=== PATIENT | female | born 1980 | race Two or more races ===

== ENCOUNTER 2021-01-26 15:59 | Emergency (ER) | payer OTHER, MEDICAID, SELFPAY ==
--- NOTE | 2021-01-26 08:08 | ECG_ITS ---
Test Reason : CHEST PAIN Blood Pressure : / mmHG Vent. Rate : 073 BPM Atrial Rate : 073 BPM P-R Int : 176 ms QRS Dur : 086 ms QT Int : 388 ms P-R-T Axes : 029 000 006 degrees QTc Int : 427 ms Normal sinus rhythm Nonspecific T wave abnormality Borderline ECG When compared with ECG of 18-DEC-2018 23:29, No significant change was found Referred By: Pura Nugent Electronically Signed By:CATALINA ELLSWORTH
[2021-01-26 16:56] VITALS: BP 103/52; PULSE 76; RESP 20; TEMP 36.2; O2SAT 97; BMI 29.5
[2021-01-26 18:39] LABS: COVID-19 Test Negative (Negative)
--- NOTE | 2021-01-26 20:17 | ED.WEAKNESS ---
HPI - Weakness General Chief complaint: Weakness Stated complaint: body aches Time Seen by Provider: 01/26/21 20:17 Source: patient Mode of arrival: ambulatory History of Present Illness HPI Narrative: 41 y/o female with no medical history presents to the ER with generalized weakness, fatigue and not feeling well since she got her 2nd COVID vaccine on Friday. Her symptoms started Friday. She reports chest discomfort on the right side when she moves or touches her chest wall. She states sometimes she has a hard time taking a deep breath but she denies SOB or GUZMAN. No coughing, no fevers. She called her doctor today who advised her to come to the ER for further evaluation. MD Complaint: generalized weakness Onset (ago): day(s) (2) Duration: intermittent Location: generalized Migration: none Severity: mild Severity scale (1-10): 3 Relieving factors: rest Exacerbating factors: movement Context: new medication Associated symptoms: denies other symptoms Related Data Allergies Allergy/AdvReac Type Severity Reaction Status Date / Time No Known Allergies [NKA] Allergy Unverified 05/25/20 17:22 Review of Systems Review of Systems: Constitutional: No Fever, No Chills ENT/Mouth: No sore throat, No Rhinorrhea, No Swallowing Difficulty Cardiovascular: + Chest Pain, No SOB, No Orthopnea, No Edema Respiratory: No Cough, No Sputum, No Wheezing, No dyspnea Gastrointestinal: No Nausea, No Vomiting, No Diarrhea, No abdominal Pain Genitourinary: No Dysuria, No Urinary Frequency, No Hematuria Musculoskeletal: No joint pain, No Myalgias Skin: No Skin Lesions, No rash Neuro: + Weakness, No Numbness, No Dizziness, + Headache Psych: No Anxiety/Panic, No Depression Heme/Lymph: No Bruising, No Lymphadenopathy PMFSH Past Medical History Attestation statement: The following information was validated with the patient. Medical History Migraine Social History Social History Advance Directives: No Advance Directives Information Provided: No Physical Exam Vital Signs: Vital Signs: Last Vital Signs Temp 97.2 F 01/26/21 16:56 Pulse 76 01/26/21 16:56 Resp 20 01/26/21 16:56 BP 103/52 L 01/26/21 16:56 Pulse Ox 97 01/26/21 16:56 Body Mass Index 29.5 Appearance: Alert. Oriented X3. No acute distress. Eyes: Pupils equal, round and reactive to light. ENT: Pharynx normal. Neck: Normal inspection. Neck supple. CVS: Normal heart rate and rhythm. Pulses normal. Respiratory: No respiratory distress. Breath sounds normal. Right chest wall with mild reproducible tenderness between middle ribs. Abdomen: Soft and nontender. +BS x4 Skin: Skin warm and dry. Normal skin color. Normal skin turgor. No rashes. Extremities: No lower extremity edema. Neuro: Oriented X 3. No motor deficit. No sensory deficit. Course Course Course Narrative: 41 y/o female presenting with fatigue, generalized weakness and reproducible chest discomfort s/p Moderna COVID vaccine. COVID negative here. Her exam is reassuring. EKG normal. She wants to go home and says she feels 100% better. She denies chest pain or SOB at this time. She is stable for d/c with plan for outpatient f/u. Advised to come back to the ER if she develops chest pain, SOB, or GUZMAN. MDM - Weakness Medical Records Attestation: I reviewed the patient's medical records. Lab Data Labs: Lab Results 01/26/21 Range/Units 17:45 COVID-19 (MAHIN) Negative (Negative) COVID-19 Clin Com See Note ECG Data Attestation: I personally reviewed and interpreted this ECG as follows: ECG interpretation date: 01/26/21 ECG interpretation time: 20:53 Interpretation: normal sinus rhythm, HR 73 bpm, normal OH interval. No ST segment elevations or depressions. Critical Care Time Critical Care Time Critical Care Time: No Discharge Plan Discharge Clinical Impression: Vaccine reaction Qualifiers: Encounter type: initial encounter Qualified Code(s): T50.Z95A - Adverse effect of other vaccines and biological substances, initial encounter Patient Disposition: Home, Self-Care Instructions: Costochondritis (ED) Additional Instructions: Your EKG was normal. Your pain is most likely muscular. Recommend rest and using ice to the area. Take Motrin 600 mg every 6 hours as needed for pain. Follow up with your doctor next week. If you have worsening pain or any other concerning symptoms come back to the ER for further evaluation.
[2021-01-26 21:08] VITALS: BP 110/76; PULSE 74; RESP 16
== END 2021-01-26 21:09 | disposition home or self-care (01) ==
PROVIDERS: Emergency Provider Emergency Medicine
DX: M79.10 Myalgia, unspecified site (principal); R07.9 Chest pain, unspecified; Z20.822 Contact with and (suspected) exposure to COVID-19
CPT/HCPCS: 36415; 87635; 93005; 99283

== ENCOUNTER 2021-09-03 12:27 | Emergency (ER) | payer BC, MEDICAID, SELFPAY ==
[2021-09-03 14:26] VITALS: BP 111/72; PULSE 115; RESP 20; TEMP 36.3; O2SAT 98; BMI 35.4
--- NOTE | 2021-09-03 14:51 | ED.URI ---
HPI - URI/Sore Throat General Chief Complaint: Fever Stated Complaint: COVID Symptoms Time Seen by Provider: 09/03/21 14:50 Source: patient Mode of arrival: ambulatory Limitations: no limitations History of Present Illness MD elicited complaint: fever, cough, sore throat, rhinorrhea and other (body aches) Pertinent past history: other (vaccinated x 2) Onset (ago): day(s) (2) Severity: moderate Description of mucous: clear Able to tolerate fluids by mouth: Yes Exacerbating factors: swallowing Relieving factors: nothing Context: sick contacts ( has positive COVID test at home) Associated symptoms: fever, chills, myalgias, headache, rhinorrhea, sore throat and cough Treatments prior to arrival: none Related Data Allergies Allergy/AdvReac Type Severity Reaction Status Date / Time No Known Allergies [NKA] Allergy Unverified 05/25/20 17:22 Review of Systems Review of Systems: Constitutional : positive Fever, positive Chills, positive fatigue, positive Malaise ENT/Mouth : positive sore throat, positive runny nose Eyes: No Discharge Cardiovascular : No Chest Pain, No SOB Respiratory : No Cough, No Sputum Gastrointestinal : No Nausea, No Vomiting, No Diarrhea Genitourinary : No Dysuria, No Urinary Frequency Musculoskeletal : positive Myalgia Skin : No rash Neuro : No Headache PMFSH Past Medical History Medical History Migraine Social History Social History (Updated 09/03/21 @ 15:03 by Nancy Nuñez DO) Patient Tobacco Use Status: Never used Tobacco Advance Directives: No Advance Directives Information Provided: No Patient : No Physical Exam Vital Signs: Vital Signs: Last Vital Signs Temp 98.6 F 09/03/21 14:59 Pulse 100 09/03/21 14:59 Resp 18 09/03/21 14:59 BP 130/84 09/03/21 14:59 Pulse Ox 97 09/03/21 14:59 BMI result Body Mass Index 35.4 Appearance: Alert. Oriented X3. No acute distress. Eyes: Pupils equal, round and reactive to light. ENT: Pharynx mild generalized erythema Neck: Normal inspection. Neck supple. CVS: Normal heart rate and rhythm. Pulses normal. Respiratory: No respiratory distress. Breath sounds normal. Abdomen: Soft and non-tender. Skin: Skin warm and dry. Normal skin color. Normal skin turgor. Extremities: No lower extremity edema. No calf ttp Neuro: Oriented X 3. No motor deficit. No sensory deficit. MDM - URI/Sore Throat MDM Narrative Medical decision making narrative: 41 yo female vaccinated x 2 non-smoker no history of asthma 2 days of URI symptoms no hypoxia clear lungs - 97% on RA. positive for COVID at home with rapid test at this time rapid test done given symptoms and positive contact will treat as positive - no work for 10 days. pending test stable for DC Lab Data Labs: Lab Results 09/03/21 09/03/21 Range/Units 15:00 15:00 COVID-19 (MAHIN) Positive A (Negative) COVID-19 Clin Com See Note S. pyogenes GrpA JONI Negative (Negative) Discharge Plan Discharge Clinical Impression: COVID-19 Patient Disposition: Home, Self-Care Instructions: COVID-19 (Coronavirus Disease 2019) (ED) Additional Instructions: return to ED for any worsening symptoms or concerns monitor your breathing if you are so short of breath you cannot walk to the bathroom please come back wear a mask, quarantine, protect others Stand Alone Forms: Work/School Release
[2021-09-03 14:59] VITALS: BP 130/84; PULSE 100; RESP 18; TEMP 37; O2SAT 97
[2021-09-03 15:16] LABS: COVID-19 Test Positive (Negative); IDNOW Serial# 08D9AD1C; IDNOW Serial# 55D5AD1C; Strep A Nucleic Acid Negative (Negative)
[2021-09-03] MEDS: Acetaminophen 325 MG TABLET 650 MG PO (15:36)
== END 2021-09-03 15:48 | disposition home or self-care (01) ==
PROVIDERS: Emergency Provider Emergency Medicine; PCP Internal Medicine
DX: U07.1 COVID-19 (principal)
CPT/HCPCS: 36415; 87635; 87651; 99283; 99284

== ENCOUNTER 2021-09-08 13:09 | Outpatient (REF) | payer BC, MEDICAID, SELFPAY ==
[2021-09-08 15:00] LABS: Binax Internal Control QC Valid; Binax Lot number: 9864; Binax Now Covid-19 Ag Negative (Negative)
== END 2021-09-08 13:10 | disposition home or self-care (01) ==
LOC: HO.LAB 13:09
PROVIDERS: Visit Provider Internal Medicine
DX: Z20.822 Contact with and (suspected) exposure to COVID-19 (principal)
CPT/HCPCS: 36415; C9803

== ENCOUNTER 2021-11-28 10:01 | Emergency (ER) | payer BC, MEDICAID, SELFPAY ==
[2021-11-28 10:09] VITALS: BP 122/63; PULSE 75; RESP 18; TEMP 36.9; O2SAT 98; BMI 32.8
--- NOTE | 2021-11-28 10:14 | ED_ITS ---
HPI - General Adult General Chief complaint: General Medical Stated complaint: body aches/heaviness/fatigue Time Seen by Provider: 11/28/21 10:14 Source: patient Mode of arrival: ambulatory Limitations: no limitations History of Present Illness HPI narrative: 41yo female w/ history of hypothyroidism, migraines here with complaints of generalized body aches (joint pain & muscle aches), malaise x 3 days. No fevers, chills, diff breathing, cough, chest pain, abdominal pain, vomiting, diarrhea. Patient has received COVID vaccine x3. No sick contact or recent travel. She last had her thyroid checked in October of 2021. She is unsure why her numbers were. She has been on levothyroxine for several years Related Data Allergies Allergy/AdvReac Type Severity Reaction Status Date / Time No Known Allergies [NKA] Allergy Unverified 05/25/20 17:22 Review of Systems Review of Systems: Yes all other systems are reviewed and are negative Constitutional: Constitutional: Reports no additional constitutional complaints, Reports body ache(s), Denies chills, Denies fever(s), Denies headache(s), Reports malaise and Denies weakness Eyes: Eyes: Reports no additional eye complaints and Denies change in vision ENT: Reports system reviewed and no additional complaints, except as documented, Denies dizziness, Denies headache(s), Denies nasal congestion, Denies nasal discharge and Denies neck pain Cardiovascular: Cardiovascular: Reports no additional cardiovascular complaints, Denies chest pain, Denies leg edema and Denies dyspnea Respiratory: Respiratory: Reports no additional respiratory complaints, Denies cough and Denies dyspnea Gastrointestinal: Gastrointestinal: Reports no additional gastrointestinal complaints, Denies abdominal pain, Denies diarrhea, Denies nausea and Denies vomiting Genitourinary: Genitourinary: Reports no additional female genitourinary complaints and Denies urinary incontinence Musculoskeletal: Musculoskeletal: Reports no additional musculoskeletal complaints, Denies back pain, Denies arthralgias, Denies joint swelling, Denies neck pain, Denies numbness and Denies tingling Integumentary/Breasts: Skin/Breast: Reports system reviewed and no additional complaints, except as docu and Denies rash Neurologic: Reports system reviewed and no additional complaints, except as documented, Denies dizziness, Denies headache(s), Denies numbness, Denies tingling and Denies weakness [facility] Past Medical History Attestation statement: The following information was validated with the patient. Source: old records reviewed and nursing notes reviewed Medical History Migraine Social History Social History Patient Tobacco Use Status: Never used Tobacco Advance Directives: No Patient : No Physical Exam ED Vital Signs: Vital Signs - 24 hr 11/28/21 10:09 Temperature 98.5 F Pulse Rate 75 Respiratory Rate 18 Blood Pressure 122/63 Pulse Oximetry 98 BMI result Body Mass Index 32.8 Const General: cooperative, healthy appearing, comfortable and no acute distress Orientation/consciousness: patient oriented x3 Limitations: no limitations HENMT Head: Yes normal to inspection Ears: hearing grossly normal bilaterally and TM's normal bilaterally General nose exam: Normal external nose present Face and sinus: Yes normal facial exam Mouth: Normal oral and palatal mucosa present Teeth and gingiva: dentition normal Throat: Yes posterior oropharynx normal, Yes tonsils normal and Yes uvula midline Eyes General: appearance normal, both eyes and all related structures Pupils: Equal, round and reactive pupils present Neck Neck: Yes normal visual inspection, Yes full ROM, Yes no lymphadenopathy and Yes no meningeal signs Chest Chest palpation & inspection: normal inspection of the chest Resp Effort & Inspection: normal respiratory effort Auscultation: clear to auscultation bilaterally Cardio Rate: regular rate Rhythm: regular rhythm Peripheral pulses: Peripheral pulses 2+ throughout GI Inspection: Yes normal to inspection Palpation (GI): Soft to palpation and nontender General: Yes no CVA tenderness Back/Spine/Pelvis Back: no CVA tenderness Thoracic/Lumbar Spine: thoracic and lumbar spine normal to inspection Skin General skin exam: no rashes or lesions noted Neuro General: patient oriented x3, moves all extremities and no meningeal signs Cranial nerves: Yes CN's II-XII intact bilaterally, Yes Equal, round and reactive pupils present, Yes Bilaterally intact EOM present, Yes Nystagmus not present, Yes Normal facial strength present and Yes Midline tongue present Cognition (Neuro): normal cognition Gait exam (Neuro): Normal gait present Motor exam (neuro): 5/5 motor strength present throughout Sensory Exam: Normal double simultaneous stimulation for sensation Extrem General: Yes normal to inspection, Yes no pedal edema and Yes no calf tenderness Course Course Course Narrative: 41 yo female here with body aches and malaise. Normal exam. VSS. Will check covid, flu screen. 1100-Covid and flu screen are negative. Likely viral syndrome. Recommend follow with PCP. Reviewed worrisome signs and symptoms of when to return to the emergency department. Comfortable discharge home. Medical Decision Making Medical Records Medical records reviewed: Yes I reviewed the patient's medical records. Lab Data Lab results reviewed: Yes I reviewed the patient's lab results. Labs: Lab Results 11/28/21 11/28/21 Range/Units 10:26 10:26 COVID-19 (MAHIN) Negative (Negative) COVID-19 Clin Com See Note Influenza Type A (JONI) Negative (Negative) Influenza Type B (JONI) Negative (Negative) Influenza A & B Note See Note Discharge Plan Discharge Clinical Impression: Acute viral syndrome Patient Disposition: Home, Self-Care Instructions: Viral Syndrome (ED) Additional Instructions: Covid screen and flu screen are negative Increase fluids, rest Motrin or tylenol for pain or fever as needed Follow-up with your PCP to have your thyroid level checked Referrals: Physician,Unknown J [Primary Care Provider] - 1 week Stand Alone Forms: Work/School Release
[2021-11-28 10:55] LABS: COVID-19 Test Negative (Negative); IDNOW Serial# 16C4AD1C
[2021-11-28 11:18] LABS: IDNOW Serial# 08D9AD1C; Influenza A Negative (Negative); Influenza B2 Negative (Negative)
== END 2021-11-28 11:32 | disposition home or self-care (01) ==
PROVIDERS: Nurse Practitioner Family; Emergency Provider Emergency Medicine
DX: B34.9 Viral infection, unspecified (principal); M79.10 Myalgia, unspecified site; Z20.822 Contact with and (suspected) exposure to COVID-19; Z79.899 Other long term (current) drug therapy
CPT/HCPCS: 87502; 87635; 99283

== ENCOUNTER 2021-12-15 16:36 | Emergency (ER) | payer MEDICAID, SELFPAY ==
[2021-12-15 16:56] VITALS: BP 114/84; PULSE 93; RESP 19; TEMP 36.6; O2SAT 98; BMI 32.9
--- NOTE | 2021-12-15 18:30 | ED.ABDPAIN ---
HPI - Abdominal Pain General Chief Complaint: Abdominal Pain Stated Complaint: abd pain,diarrhea Time Seen by Provider: 12/15/21 18:29 Source: patient Mode of arrival: ambulatory Limitations: no limitations History of Present Illness HPI narrative: Patient been having loose bowels diarrhea for last 3 days 4- 5 times a day , darkish/blackish in color called the PCPadvised to go to the hospital patient took Pepto-Bismol earlier no nausea no vomiting no dizziness no shortness of breath no history of any ulcer no significant abdominal pain Related Data Allergies Allergy/AdvReac Type Severity Reaction Status Date / Time No Known Allergies [NKA] Allergy Unverified 05/25/20 17:22 Review of Systems Review of Systems Yes all other systems are reviewed and are negative [facility] Past Medical History Medical History Hypothyroid Migraine Social History Social History Patient Tobacco Use Status: Never used Tobacco Use of substances other than those prescribed or required for medical reasons: No Advance Directives: No Advance Directives Information Provided: No Patient : No Physical Exam ED Vital Signs: Vital Signs - 24 hr 12/15/21 16:56 12/15/21 18:47 Temperature 98 F Pulse Rate 93 82 Respiratory Rate 19 18 Blood Pressure 114/84 131/73 Pulse Oximetry 98 99 BMI result Body Mass Index 32.9 Appearance: Alert. Oriented X3. No acute distress. Eyes: No pallor or icterus ENT: Pharynx normal. Oral Mucosa moist Neck: Normal inspection. Neck supple. CVS: Normal heart rate and rhythm. Pulses normal. Respiratory: No respiratory distress. Abdomen: Soft and nontender. Bowel sounds are present, no mass palpable, no CVA tenderness Rectal: Brown stool guaiac negative Skin: Skin warm and dry. Normal skin color. Normal skin turgor. Extremities: No lower extremity edema. No calf tenderness Neuro: Oriented X 3. MDM - Abdominal Pain MDM Narrative Medical decision making narrative: Patient with mild gastroenteritis guaiac negative will discharge patient home Lab Data Attestation: I reviewed the patient's lab results. Labs: Lab Results 12/15/21 Range/Units 18:43 Stool Occult Blood NEGATIVE (NEGATIVE) Discharge Plan Discharge Clinical Impression: Diarrhea Patient Disposition: Home, Self-Care Instructions: Acute Diarrhea (ED) Additional Instructions: Drink plenty of fluids Your black stool is not from bleeding
[2021-12-15] MEDS: Dicyclomine HCl 10 MG CAPSULE 20 MG PO (18:45)
[2021-12-15 18:47] VITALS: BP 131/73; PULSE 82; RESP 18; O2SAT 99
[2021-12-15 18:51] LABS: OBS Int Ctl Valid YES; OBS1 NEGATIVE (NEGATIVE)
== END 2021-12-15 19:07 | disposition home or self-care (01) ==
LOC: HO.ED 18:42
PROVIDERS: Emergency Provider Internal Medicine; PCP Internal Medicine
DX: R19.7 Diarrhea, unspecified (principal)
CPT/HCPCS: 82272; 99283; 99284

== ENCOUNTER 2022-01-16 10:45 | Emergency (ER) | payer OTHER, SELFPAY ==
[2022-01-16 11:05] VITALS: BP 107/70; PULSE 102; RESP 18; TEMP 37.1; O2SAT 97; BMI 32.9
[2022-01-16 11:34] LABS: COVID-19 Test Negative (Negative)
[2022-01-16 11:37] LABS: Influenza A Positive (Negative)
[2022-01-16 11:38] LABS: Influenza B2 Negative (Negative)
--- NOTE | 2022-01-16 12:43 | ED.URI ---
HPI - URI/Sore Throat General Chief Complaint: Upper Respiratory Symptoms Stated Complaint: sore throat body aches Time Seen by Provider: 01/16/22 12:39 Source: patient Mode of arrival: ambulatory Limitations: language barrier (Upper Sorbian-speaking) History of Present Illness MD elicited complaint: fever, cough, sore throat, rhinorrhea and nasal congestion Onset (ago): day(s) (2) Consistency: constant and progressively worsening Severity: mild Description of mucous: clear, watery and yellow Able to tolerate fluids by mouth: Yes Exacerbating factors: other (Coughing) Relieving factors: nothing Context: sick contacts (She reports her daughter and at home tested positive for influenza yesterday and her today) Associated symptoms: fever, chills, myalgias, headache, rhinorrhea, nasal congestion, sore throat, cough and shortness of breath Treatments prior to arrival: none Related Data Previous Rx's Medication Instructions Recorded codeine 10 mg-guaifenesin 100 mg/5 5 ml PO Q6H PRN #120 ml 01/16/22 mL oral liquid (Guaifenesin AC) oseltamivir 75 mg capsule (Tamiflu) 75 mg PO BID 5 Days #10 cap 01/16/22 Allergies Allergy/AdvReac Type Severity Reaction Status Date / Time No Known Allergies [NKA] Allergy Verified 01/16/22 11:05 Review of Systems Review of Systems: Constitutional : + subjective fevers/chills/fatigue/malaise, No Weight loss, No Night Sweats ENT/Mouth : + sore throat/nasal congestion/rhinorrhea, No Hearing loss, No Ear Pain, No Sinus Pain, No Hoarseness, No Swallowing Difficulty Eyes: No Eye Pain, No Swelling, No Redness, No Foreign Body, No Discharge, No Vision Changes Cardiovascular : No Chest Pain, No SOB, No Dyspnea on Exertion, No Orthopnea, No Edema, No Palpitations Respiratory : + Cough, + Sputum, No Wheezing, No Smoke Exposure, No Dyspnea Gastrointestinal : No Nausea, No Vomiting, No Diarrhea, No Constipation, No abdominal Pain, No Hematochezia, No Melena Genitourinary : no irregular bleeding, No Dysuria, No Urinary Frequency, No Hematuria, No Urinary Incontinence, No Urgency, No Flank Pain, No Urinary Flow Changes, No Hesitancy Musculoskeletal : No joint pain, + Myalgias, No Joint Swelling Skin : No Skin Lesions, No rash Neuro : No Weakness, No Numbness, No Paresthesias, No Loss of Consciousness, No Dizziness, No Headache Psych : No Anxiety/Panic, No Depression, No SI/HI/AH/VH, No Social Issues, Heme/Lymph: No Bruising, No Bleeding,No Lymphadenopathy Endocrine : No Polyuria, No Polydipsia, No Temperature Intolerance Yes all other systems are reviewed and are negative [facility] Past Medical History Attestation statement: The following information was validated with the patient. Medical History Hypothyroid Migraine Social History Social History Patient Tobacco Use Status: Never used Tobacco Advance Directives: No Advance Directives Information Provided: No Physical Exam Vital Signs: Vital Signs: Last Vital Signs Temp 98.7 F 01/16/22 11:05 Pulse 102 H 01/16/22 11:05 Resp 18 01/16/22 11:05 BP 107/70 01/16/22 11:05 Pulse Ox 97 01/16/22 11:05 BMI result Body Mass Index 32.9 vital signs have been reviewed as normal and appeared to be correct. Blood pressure normal. Heart rate 102. Respiration rate normal. Temperature normal. Oxygen saturation normal. Appearance: Alert. Oriented X3. No acute distress. Head: Normal external exam. Normocephalic. Atraumatic. Eyes: PERRLA. EOMI. Conjunctiva and sclera normal. Eyelids normal. ENT: EAC normal. TM's Normal. Pharynx normal. Uvula midline. Moist mucous membranes. No lesions/ulcerations or masses noted on the tongue. Normal voice. No trismus noted. No drooling noted. No muffled voice noted. Neck: Normal inspection. Neck supple. FROM. No adenopathy. Thyroid Normal. No tracheal deviation noted. No crepitus is noted. No meningeal signs. No neck mass noted. CVS: Normal heart rate and rhythm. Heart sound normal. Pulses normal throughout. No murmurs/rales/gallops. Respiratory: No respiratory distress. Painless inspiration. Breath sounds normal. No wheezes/rales/rhonchi noted. Chest nontender. No accessory muscle usage noted or decreased air movement noted. Abdomen: Soft and nontender. Bowel sounds normal in all 4 quadrants. No distention noted. No organomegaly noted. No visible injury noted. Back: Full range of motion noted. Skin: Skin warm and dry. Normal skin color. Normal skin turgor. No rashes/lesions/lacerations noted. Extremities: Extremities exhibit normal range of motion and nontender. Neuro: Oriented X 3. No motor deficit. No sensory deficit. Reflexes normal. Normal steady gait. No focal neuro deficits noted. CN's II-XII intact bilaterally? Vascular: + radial pulses/+ 2 distal pedal pulses/+2 dorsalis pedis b/l. Normal cap refill. No cyanosis noted to upper extremity nails and lower extremity toes nails. Course Course Course Narrative: Patient positive for influenza. Negative for COVID. No labs or imaging indicated at this time. Will DC home with Tamiflu and symptomatic treatment instructions return if any new or worsening symptoms to follow up with primary care provider and to self isolate. Patient understands agrees with this plan. MDM - URI/Sore Throat Medical Records Attestation: I reviewed the patient's medical records. Lab Data Attestation: I reviewed the patient's lab results. Labs: Lab Results 01/16/22 01/16/22 Range/Units 11:10 11:10 COVID-19 (MAHIN) Negative (Negative) COVID-19 Clin Com See Note Influenza Type A (JONI) Positive A (Negative) Influenza Type B (JONI) Negative (Negative) Influenza A & B Note See Note Discharge Plan Discharge Clinical Impression: Influenza A Patient Disposition: Home, Self-Care Instructions: Influenza (ED), Flu Shot (Vaccine) for Adults (ED), Droplet Precautions (ED) Prescriptions: New codeine-guaifenesin [Guaifenesin AC] 10-100 mg/5 mL liquid 5 ml PO Q6H PRN (Reason: cold symptoms) Qty: 120 0RF oseltamivir [Tamiflu] 75 mg capsule 75 mg PO BID 5 Days Qty: 10 0RF Referrals: Sebastián Treviño III, MD [Primary Care Provider] - 2 days Stand Alone Forms: Work/School Release Print Language: Upper Sorbian
== END 2022-01-16 12:56 | disposition home or self-care (01) ==
PROVIDERS: Emergency Provider Emergency Medicine; PCP Internal Medicine
DX: J10.1 Influenza due to other identified influenza virus with other respiratory manifestations (principal); M79.10 Myalgia, unspecified site; J34.89 Other specified disorders of nose and nasal sinuses; R06.02 Shortness of breath; Z20.822 Contact with and (suspected) exposure to COVID-19; Z79.899 Other long term (current) drug therapy
CPT/HCPCS: 87502; 87635; 99283

== ENCOUNTER 2022-05-06 12:22 | Emergency (ER) | payer OTHER, SELFPAY ==
--- NOTE | ~2022-05-06 | XR_ITS ---
EXAMINATION: XR CHEST CLINICAL INFORMATION: Cough, chest pain and shortness of breath COMPARISON: Previous chest x-ray May 2020 TECHNIQUE: 2 views of the chest were obtained. FINDINGS: No significant abnormality is noted involving the heart, lungs, mediastinum, bony thorax or soft tissues. XR/XR chest 2V IMPRESSION: Unremarkable examination.
[2022-05-06 12:32] VITALS: BP 110/70; BP 119/63; PULSE 70; PULSE 88; RESP 14; TEMP 36.5; O2SAT 100; O2SAT 97; BMI 34.9
--- NOTE | 2022-05-06 12:51 | ECG_ITS ---
Test Reason : chest pain Blood Pressure : / mmHG Vent. Rate : 078 BPM Atrial Rate : 078 BPM P-R Int : 172 ms QRS Dur : 090 ms QT Int : 388 ms P-R-T Axes : 019 008 -17 degrees QTc Int : 442 ms Normal sinus rhythm T wave abnormality, consider anterior ischemia Abnormal ECG When compared with ECG of 26-JAN-2021 17:01, Inverted T waves have replaced nonspecific T wave abnormality in Anterior leads Referred By: Sarah Jackson Electronically Signed By:EMEKA POWER
--- NOTE | 2022-05-06 12:52 | ED_ITS ---
HPI - Chest Pain General Chief Complaint: Chest Pain Stated Complaint: CHEST PRESSURE THIS AM W/MOVEMENT PER EMS Time Seen by Provider: 05/06/22 12:33 Source: patient Mode of arrival: ambulatory Limitations: language barrier (Uzbek-speaking) History of Present Illness HPI narrative: Patient presents emergency department for evaluation of upper respiratory symptoms and chest pain. She states she has been sick with cough, nasal congestion, bilateral ear pain, shortness of breath for 1 week. This morning she awoke with pressure to the middle of her chest therefore she contacted EMS to come to the hospital. Pain is made worse with movement, coughing, deep inspiration, first noticed this when she stood up out of bed. Denies fevers, chills, neck pain, neck stiffness nausea abdominal, dysuria urinary frequency, weakness of her extremities. Related Data Previous Rx's Medication Instructions Recorded codeine 10 mg-guaifenesin 100 mg/5 5 ml PO Q6H PRN cold symptoms #120 01/16/22 mL oral liquid (Guaifenesin AC) mL oseltamivir 75 mg capsule (Tamiflu) 75 mg PO BID 5 days #10 caps 01/16/22 benzonatate 150 mg capsule 150 mg PO TID PRN cough #14 caps 05/06/22 Allergies Allergy/AdvReac Type Severity Reaction Status Date / Time No Known Allergies [NKA] Allergy Verified 01/16/22 11:05 Review of Systems Review of Systems: Constitutional : No Weight loss, No Fever, No Chills ENT/Mouth :? No sore throat, No Rhinorrhea Eyes: No Eye Pain, No Swelling Cardiovascular : pos Chest Pain, pos SOB, no Dyspnea on Exertion, No Orthopnea, No Edema, No Palpitations Respiratory : Positive Cough, positive Sputum Gastrointestinal : No Nausea, No Vomiting, No Diarrhea, No abdominal Pain, No Hematochezia, No Melena Genitourinary : No Dysuria, No Urinary Frequency Musculoskeletal : No joint pain, No Myalgias, No Joint Swelling Skin : No Skin Lesions, No rash Neuro : No Weakness, No Numbness, No Dizziness, No Headache Psych : No Anxiety/Panic, No Depression Heme/Lymph: No Bruising, No Lymphadenopathy Endocrine : No Polyuria, No Polydipsia Yes all other systems are reviewed and are negative [facility] Past Medical History Attestation statement: The following information was validated with the patient. Source: old records reviewed Medical History Hypothyroid Migraine Social History Social History Alcohol intake: never Patient Tobacco Use Status: Never used Tobacco Use of substances other than those prescribed or required for medical reasons: No Advance Directives: No Advance Directives Information Provided: Yes Patient : No Physical Exam Vital Signs: Vital Signs: Last Vital Signs Temp 97.8 F 05/06/22 14:33 Pulse 81 05/06/22 16:07 Resp 14 05/06/22 16:07 BP 125/77 05/06/22 16:07 Pulse Ox 97 05/06/22 16:07 O2 Del Method 05/06/22 16:07 BMI result Body Mass Index 34.9 Vital signs have been reviewed as normal and appeared to be correct. Blood pressure normal.? Heart rate normal.? Respiration rate normal. Temperature normal.? Oxygen saturation normal. Appearance: Alert.?Oriented to person, place and time. No acute distress.?Normal affect. Eyes: Pupils equal, round and reactive to light.? ENT: Pharynx normal.? TM normal bilaterally. ? Neck: Normal inspection.? Neck supple.?? CVS: Heart sounds normal. Normal heart rate and rhythm.? Pulses normal.?? Respiratory: No respiratory distress.? Lung sounds clear to auscultation in the bilateral lobes, mild rhonchi to the bilateral upper lobes Abdomen: Soft and non-tender. Normoactive bowel sounds. ?? Skin: Skin warm and dry.? Normal skin color.? ?? Extremities: No lower extremity edema.? No calf ttp? Neuro: Moves all extremities spontaneously. Sensation intact bilaterally. No motor deficits Ambulates with normal steady gait. Course Course Course Narrative: Patient is a 42-year-old female with a past medical history of migraines, and hypothyroidism, presenting for evaluation of upper respiratory symptoms and chest pain. Well-appearing, nontoxic, afebrile, no tachycardia or tachypnea/hypoxia. Speaking clear full sentences, ambulatory with steady gait. Will obtain CBC to evaluate for leukocytosis/ anemia, CMP to evaluate for abnormal electrolytes /abnormal renal function/ abnormal hepatic function, EKG and troponin to evaluate for ischemia/ACS. Chest x-ray to evaluate for consolidation/ infiltrate/ mass/ pulmonary congestion and trial acetaminophen and ibuprofen for pain. Reevaluation(s) Reevaluation #1: CBC and CMP are overall unremarkable. Chest x-ray shows no acute c ardiopulmonary process. COVID-19 testing is negative. Received EKG for review at this time, indicates normal sinus rhythm with evidence of inferior and anterior ischemia by T-wave inversion, however this appears consistent with a prior EKG obtained in April 2016. Troponin is <3.5 given that her pain began this morning will obtain delta troponin for further evaluation. Discussed these findings with patient. She is agreeable with the plan of care. Time: 14:20 Reevaluation #2: Delta troponin is negative. Patient continues to remain hemodynamically stable. At this time suspect pain to be of muscular nature, secondary to cough. Reviewed these findings with patient, advised plan of care for discharge home, acetaminophen/ibuprofen as needed for pain, benzonatate for cough, reviewed worrisome signs and symptoms to return back to the emergency department for, advised following up with primary care provider within 1-3 days. Patient verbalized understanding and is agreeable with plan. Discharged home in stable condition. Time: 16:44 [facility] - Chest Pain Medical Records Data Attestation: I reviewed the patient's medical records. Lab Data Attestation: I reviewed the patient's lab results. Result diagrams: 05/06/22 13:09 05/06/22 13:09 Labs: Lab Results 05/06/22 05/06/22 05/06/22 Range/Units 13:09 13:09 13:09 WBC 6.3 (4.8-10.8) X10*3/uL RBC 5.01 (4.20-5.50) X10*6/uL Hgb 14.2 (12.0-16.0) g/dl Hct 42.5 (37.0-47.0) % MCV 84.8 (80.0-98.0) fL MCH 28.3 (27.0-33.0) pg MCHC 33.4 (31.0-35.0) g/dl RDW 12.2 (11.0-16.0) % Plt Count 246 (160-400) X10*3/uL MPV 10.7 (9.4-12.3) fL Immature Gran % (Auto) 0.5 H (0.0-0.4) % Neut % (Auto) 49.9 (45-73) % Lymph % (Auto) 38.9 (20-40) % [place] % (Auto) 8.1 (2-11) % Eos % (Auto) 1.7 (0-4) % Baso % (Auto) 0.9 (0-2) % Lymph # (Auto) 2.5 (1.2-4.9) X10*3/uL [place] # (Auto) 0.5 (0.1-1.2) X10*3/uL Eos # (Auto) 0.1 (0.0-0.4) X10*3/uL Baso # (Auto) 0.1 (0.0-0.2) X10*3/uL Abs Immat Gran (auto) 0.03 (0.00-0.03) X10*3/uL Absolute Neuts (auto) 3.2 (2.0-8.3) x10*3/uL Absolute Nucleated RBC 0.000 (0.0-0.012) X10*3/uL Nucleated RBC % (auto) 0.0 (0.0-0.2) /100WBC Sodium 142 (135-145) mmol/L Potassium 4.2 (3.3-5.1) mmol/L Chloride 106 (96-108) mmol/L Carbon Dioxide 27 (22-29) mmol/L Anion Gap 13 (12-20) BUN 10 (9-16) mg/dL Creatinine 0.72 (0.5-1.4) mg/dL Estim Creat Clear Calc 105.0 Estimated GFR > 60 Random Glucose 85 (60-115) mg/dL Calcium 8.7 (8.4-10.2) mg/dL Total Bilirubin 0.4 (0.0-1.0) mg/dL AST 26 (5-31) U/L ALT 33 H (0-31) U/L Alkaline Phosphatase 96 (39-117) U/L Troponin I High Sens < 3.5 (<3.5-17.0) ng/L Total Protein 7.7 (6.5-8.0) g/dL Albumin 4.1 (3.5-5.0) g/dL COVID-19 (MAHIN) (Negative) COVID-19 Clin Com 05/06/22 05/06/22 Range/Units 13:09 16:11 WBC (4.8-10.8) X10*3/uL RBC (4.20-5.50) X10*6/uL Hgb (12.0-16.0) g/dl Hct (37.0-47.0) % MCV (80.0-98.0) fL MCH (27.0-33.0) pg MCHC (31.0-35.0) g/dl RDW (11.0-16.0) % Plt Count (160-400) X10*3/uL MPV (9.4-12.3) fL Immature Gran % (Auto) (0.0-0.4) % Neut % (Auto) (45-73) % Lymph % (Auto) (20-40) % [place] % (Auto) (2-11) % Eos % (Auto) (0-4) % Baso % (Auto) (0-2) % Lymph # (Auto) (1.2-4.9) X10*3/uL [place] # (Auto) (0.1-1.2) X10*3/uL Eos # (Auto) (0.0-0.4) X10*3/uL Baso # (Auto) (0.0-0.2) X10*3/uL Abs Immat Gran (auto) (0.00-0.03) X10*3/uL Absolute Neuts (auto) (2.0-8.3) x10*3/uL Absolute Nucleated RBC (0.0-0.012) X10*3/uL Nucleated RBC % (auto) (0.0-0.2) /100WBC Sodium (135-145) mmol/L Potassium (3.3-5.1) mmol/L Chloride (96-108) mmol/L Carbon Dioxide (22-29) mmol/L Anion Gap (12-20) BUN (9-16) mg/dL Creatinine (0.5-1.4) mg/dL Estim Creat Clear Calc Estimated GFR Random Glucose (60-115) mg/dL Calcium (8.4-10.2) mg/dL Total Bilirubin (0.0-1.0) mg/dL AST (5-31) U/L ALT (0-31) U/L Alkaline Phosphatase (39-117) U/L Troponin I High Sens < 3.5 (<3.5-17.0) ng/L Total Protein (6.5-8.0) g/dL Albumin (3.5-5.0) g/dL COVID-19 (MAHIN) Negative (Negative) COVID-19 Clin Com See Note Imaging Data Chest x-ray: Radiologist's impression: XR/XR chest 2V IMPRESSION: Unremarkable examination. ECG Data ECG #1: Attestation: I personally reviewed and interpreted this ECG as follows: ECG interpretation date: 05/06/22 Interpretation: Rate: 78 Rhythm:? Normal sinus rhythm [place]:? Normal Normal P waves.? Normal MARIZA.?? Normal QRS complex.?? ST T wave :??No ST elevation, no ST depression, T-wave inversion in the inferior and anterior/septal leads, consistent with prior EKG in 2016 qTC: 442 prior studies:? April 2016 The study has been interpreted contemporaneously by me. Discharge Plan Discharge Clinical Impression: Acute costochondritis Patient Disposition: Home, Self-Care Instructions: Costochondritis (ED) Additional Instructions: You can take ibuprofen 200 mg, 3 tablets (600mg) every 6-8 hours as needed for pain, in addition to Tylenol 500 mg, 2 tablets (1,000mg) every 4-6 hours as needed for pain, but not to exceed 3 doses daily (3,000mg).? You have been given a prescription for benzonatate to use for cough. Please contact your primary care provider in arrange a follow-up visit within 3 days. Return to the emergency department with any new or worsening symptoms or concerns. Prescriptions: New benzonatate 150 mg capsule 150 mg PO TID PRN (Reason: cough) Qty: 14 0RF No Action codeine-guaifenesin [Guaifenesin AC] 10-100 mg/5 mL liquid 5 ml PO Q6H PRN (Reason: cold symptoms) Qty: 120 0RF oseltamivir [Tamiflu] 75 mg capsule 75 mg PO BID 5 Days Qty: 10 0RF Interventions: ED Discharge Assessment Last Done: 05/06/22 16:54 Discharge Date/Time: 05/06/22 16:55
[2022-05-06 13:14] LABS: Basophils Absolute Auto 0.1 X10*3/uL (0.0-0.2); Basophils Percent Auto 0.9 % (0-2); Eosinophils Absolute Auto 0.1 X10*3/uL (0.0-0.4); Eosinophils Percent Auto 1.7 % (0-4); Hematocrit 42.5 % (37.0-47.0); Hemoglobin 14.2 g/dl (12.0-16.0); Imm Gran Abs Auto 0.03 X10*3/uL (0.00-0.03); Imm Gran Pct Auto 0.5 % (0.0-0.4); Lymphocytes Absolute Auto 2.5 X10*3/uL (1.2-4.9); Lymphocytes Percent Auto 38.9 % (20-40); MANUAL DIFF FLAG NO; Mean Corpuscular HGB Conc 33.4 g/dl (31.0-35.0); Mean Corpuscular Hemoglobin 28.3 pg (27.0-33.0); Mean Corpuscular Volume 84.8 fL (80.0-98.0); Mean Platelet Volume 10.7 fL (9.4-12.3); Monocytes Absolute Auto 0.5 X10*3/uL (0.1-1.2); Monocytes Percent Auto 8.1 % (2-11); Neutrophils Absolute Auto 3.2 x10*3/uL (2.0-8.3); Neutrophils Percent Auto 49.9 % (45-73); Platelet Count 246 X10*3/uL (160-400); Red Blood Count 5.01 X10*6/uL (4.20-5.50); Red Cell Distribution Width 12.2 % (11.0-16.0); White Blood Count 6.3 X10*3/uL (4.8-10.8)
[2022-05-06 13:31] LABS: IDNOW Serial# 55D5AD1C
[2022-05-06 13:32] LABS: COVID-19 Test Negative (Negative)
[2022-05-06 13:34] LABS: Troponin-I High Sensitivity < 3.5 ng/L (<3.5-17.0)
[2022-05-06 13:41] LABS: Alanine Aminotransferase 33 U/L (0-31); Albumin Level 4.1 g/dL (3.5-5.0); Alkaline Phosphatase 96 U/L (39-117); Anion Gap 13 (12-20); Aspartate Amino Transferase 26 U/L (5-31); Bilirubin Total 0.4 mg/dL (0.0-1.0); Blood Urea Nitrogen 10 mg/dL (9-16); Calcium 8.7 mg/dL (8.4-10.2); Carbon Dioxide 27 mmol/L (22-29); Chloride 106 mmol/L (96-108); Estimated Glomerular Filt Rate > 60; Glucose Random 85 mg/dL (60-115); Potassium 4.2 mmol/L (3.3-5.1); Sodium 142 mmol/L (135-145); Total Protein 7.7 g/dL (6.5-8.0)
[2022-05-06] MEDS: Acetaminophen 325 MG TABLET 975 MG PO (14:24)
[2022-05-06] MEDS: Ibuprofen 600 MG TABLET PO (14:25)
[2022-05-06 14:33] VITALS: BP 128/82; PULSE 80; RESP 16; TEMP 36.6; O2SAT 98
--- NOTE | 2022-05-06 14:42 | PC.NURSE ---
Aspirin not given in ED, already administered via EMS en route.
[2022-05-06 16:07] VITALS: BP 125/77; PULSE 81; RESP 14; O2SAT 97
[2022-05-06 16:36] LABS: Troponin-I High Sensitivity < 3.5 ng/L (<3.5-17.0)
== END 2022-05-06 16:55 | disposition home or self-care (01) ==
PROVIDERS: Nurse Practitioner Family; Emergency Provider Emergency Medicine
DX: M94.0 Chondrocostal junction syndrome [Tietze] (principal); Z20.822 Contact with and (suspected) exposure to COVID-19
CPT/HCPCS: 36415; 71046; 80053; 84484; 85025; 87635; 93005; 99283; 99285

== ENCOUNTER 2022-08-23 07:26 | Emergency (ER) | payer OTHER, SELFPAY ==
[2022-08-23 07:28] VITALS: PULSE 96; RESP 18; TEMP 37; O2SAT 97; BMI 35.0
[2022-08-23 07:41] VITALS: BP 105/59; PULSE 85; RESP 16; TEMP 37.7; O2SAT 97
--- NOTE | 2022-08-23 07:59 | ED_ITS ---
HPI - General Adult General Chief complaint: General Medical Stated complaint: Sore Throat Time Seen by Provider: 08/23/22 07:53 Source: patient Mode of arrival: ambulatory Limitations: no limitations History of Present Illness HPI narrative: 42 year old female presents to the ER with sore throat for one day. She states she is vaccinated for covid but not for flu. Her daughter had been sick but is doing better. She is tolerating her secretions, food and drinking. She denies any falls has no other medical problems other than hypothyroidism. No head or cough Related Data Previous Rx's Medication Instructions Recorded codeine 10 mg-guaifenesin 100 mg/5 5 ml PO Q6H PRN cold symptoms #120 01/16/22 mL oral liquid (Guaifenesin AC) mL oseltamivir 75 mg capsule (Tamiflu) 75 mg PO BID 5 days #10 caps 01/16/22 benzonatate 150 mg capsule 150 mg PO TID PRN cough #14 caps 05/06/22 nirmatrelvir 300 mg (150 mg See Rx Instructions PO .COMPLEX 08/23/22 x2)-ritonavir 100 mg tablet,dose #30 ea pack(EUA) (Paxlovid) Allergies Allergy/AdvReac Type Severity Reaction Status Date / Time No Known Allergies [NKA] Allergy Verified 01/16/22 11:05 Review of Systems Review of Systems: Review of systems: General: Patient denies any fever chills recent illness or falls Musculoskeletal: Denies back pain or body aches or other injuries HEENT: sore throat denies headache, runny nose, ear pain Respiratory: denies shortness of breath, cough Cardiovascular: no chest pain or palpitations : denies dysuria, frequency Abdomen: no nausea vomiting denies abdominal pain Extremities: no swelling, no pain Skin: no diaphoresis Yes all other systems are reviewed and are negative PMFSH Past Medical History Attestation statement: The following information was validated with the patient. Medical History Hypothyroid Migraine Social History Social History Alcohol intake: never Patient Tobacco Use Status: Never used Tobacco Smoked in Last 30 Days: No Use of substances other than those prescribed or required for medical reasons: No Advance Directives: No Advance Directives Information Provided: Yes Physical Exam ED Vital Signs: Vital Signs - 24 hr 08/23/22 07:28 08/23/22 07:41 Temperature 98.6 F 99.8 F Pulse Rate 96 85 Respiratory Rate 18 16 Blood Pressure 105/59 L Pulse Oximetry 97 97 Oxygen Delivery Method Room Air Room Air BMI result Body Mass Index 35.0 General: Well-appearing well-nourished in no signs of distress HEENT: Normocephalic atraumatic throat is clear no obvious exudates Neck: No signs of JVD, no masses no tenderness or lymphadenopathy Cardiovascular: Regular rate and rhythm Respiratory: Clear to auscultation bilaterally Abdomen: Soft non tender no masses Extremities: Normal pedal pulses no signs of edema Skin: Dry warm no rashes Back: No tenderness full ROM Medications Administered Discontinued Medications Generic Name Dose Route Start Last Admin Trade Name Freq PRN Reason Stop Dose Admin Acetaminophen 650 mg 08/23/22 07:54 08/23/22 08:08 Acetaminophen 325 Mg Tablet PO 08/23/22 07:55 650 mg ONCE ONE Administration Dexamethasone Sodium Phosphate 10 mg 08/23/22 07:54 08/23/22 08:09 Dexamethasone Sod Phosphate 10 Mg/Ml Vial IVPUSH 08/23/22 07:55 10 mg ONCE ONE Administration Ketorolac Tromethamine 15 mg 08/23/22 07:54 08/23/22 08:08 Ketorolac Tromethamine 30 Mg/Ml Vial IM 08/23/22 07:55 15 mg ONCE ONE Administration Medical Decision Making Medical Decision Making MDM Narrative: 42 year old female with likely viral pharyngitis. She has only had symptoms for one day I don't feel the patient needs workup for mono as she has only had one day of symptoms and has not taken anything for her sore throat. I will swab her for covid flu and strept 0848 Patient is covid positive I did educate her on proper quarantine. I will send home with zofia and a work note. Differential Diagnosis Differential Diagnoses: The differential diagnosis associated with the presentation includes covid flu strept mono though less likely Admission/Observation Consideration of admission/observation: Escalation of care including admissio n/observation considered Patient looks well pain controlled likely viral URI is safe to go home. Lab Data Labs: Lab Results 08/23/22 08/23/22 08/23/22 Range/Units 07:39 07:39 08:23 Influenza Type A (PCR) NEGATIVE (Negative) Influenza Type B (PCR) NEGATIVE (Negative) RSV RNA Qual (PCR) NEGATIVE (Negative) SARS-CoV-2 RNA (RT-PCR) POSITIVE A (Negative) S. pyogenes GrpA JONI Negative Negative (Negative) Discharge Plan Discharge Clinical Impression: Pharyngitis, Acute viral syndrome, COVID-19 Patient Disposition: Home, Self-Care Instructions: Pharyngitis (ED), Viral Syndrome (ED) Additional Instructions: Please take tylenol and ibuprofen for your sore throat. If you have any other concerns please return to the ED. YOu need to quaratine for the next 5 days. Check with your work if they have any more restrictions. Prescriptions: New Paxlovid (EUA) 300 mg (150 mg x 2)-100 mg tablets,dose pack See Rx Instructions .ROUTE .COMPLEX Qty: 30 0RF Rx Instructions: take TWO 150 mg tablets of nirmatrelvir with ONE 100 mg tablet of ritonavir twice daily for 5 days No Action benzonatate 150 mg capsule 150 mg PO TID PRN (Reason: cough) Qty: 14 0RF codeine-guaifenesin [Guaifenesin AC] 10-100 mg/5 mL liquid 5 ml PO Q6H PRN (Reason: cold symptoms) Qty: 120 0RF oseltamivir [Tamiflu] 75 mg capsule 75 mg PO BID 5 Days Qty: 10 0RF Stand Alone Forms: Work/School Release
[2022-08-23] MEDS: Acetaminophen 325 MG TABLET 650 MG PO (08:08)
[2022-08-23] MEDS: Ketorolac Tromethamine 30 MG/ML VIAL 15 MG IM (08:08)
[2022-08-23] MEDS: dexAMETHasone sod phosphate 10 MG/ML VIAL IVPUSH (08:09)
[2022-08-23 08:15] LABS: Strep A Nucleic Acid Negative (Negative)
[2022-08-23 08:35] LABS: Influenza A PCR NEGATIVE (Negative); Influenza B PCR NEGATIVE (Negative); Resp Syncy Virus RNA Qual PCR NEGATIVE (Negative); SARS COV2 PCR INHOUSE POSITIVE (Negative)
[2022-08-23 08:46] LABS: Strep A Nucleic Acid Negative (Negative)
[2022-08-23 09:08] LABS: Influenza A PCR NEGATIVE (Negative); Influenza B PCR NEGATIVE (Negative); Resp Syncy Virus RNA Qual PCR NEGATIVE (Negative); SARS COV2 PCR INHOUSE POSITIVE (Negative)
== END 2022-08-23 08:58 | disposition home or self-care (01) ==
PROVIDERS: Emergency Provider Student in an Organized Health Care Education/Training Program; PCP Internal Medicine
DX: U07.1 COVID-19 (principal); B34.9 Viral infection, unspecified; J02.9 Acute pharyngitis, unspecified
CPT/HCPCS: 0241U; 87651; 96372; 99284; J1100; J1885

== ENCOUNTER 2022-10-21 07:41 | Emergency (ER) | payer OTHER, SELFPAY ==
[2022-10-21 07:42] VITALS: BP 110/48; PULSE 80; RESP 18; TEMP 36.4; O2SAT 98; BMI 32.2
--- NOTE | 2022-10-21 08:04 | ED.GENADULT ---
HPI - General Adult General Chief complaint: Back Pain/Injury Stated complaint: back pain Time Seen by Provider: 10/21/22 08:04 Source: patient Mode of arrival: ambulatory Limitations: no limitations History of Present Illness HPI narrative: Patient is a 42 year old assigned female at with a history of migraines presenting to the emergency department today with low back pain. Patient states that she has had low back pain since . She states that she went to an urgent care where they gave her naproxen but now she is having muscle spasms and the pain is radiating down her right leg. Patient denies any dizziness, lightheadedness, abdominal pain, nausea, vomiting, fever, chills, blurry vision, double vision, loss of vision, chest pain, difficulty breathing, shortness of breath, night sweats, pain with urination, increased urinary frequency, increased urinary urgency, blood in her urine or stool, syncope or a near syncopal episode, recent trauma or falls, bowel incontinence, bladder incontinence, bowel retention, bladder retention, or any other complaints at this time. Onset (ago): day(s) (4) Location: back Radiation: distal Severity: mild Severity scale (1-10): 3 Quality: dull Relieving factors: none Exacerbating factors: none Associated symptoms: denies other symptoms Treatments prior to arrival: none Related Data Previous Rx's Medication Instructions Recorded codeine 10 mg-guaifenesin 100 mg/5 5 ml PO Q6H PRN cold symptoms #120 01/16/22 mL oral liquid (Guaifenesin AC) mL oseltamivir 75 mg capsule (Tamiflu) 75 mg PO BID 5 days #10 caps 01/16/22 benzonatate 150 mg capsule 150 mg PO TID PRN cough #14 caps 05/06/22 nirmatrelvir 300 mg (150 mg See Rx Instructions PO .COMPLEX 08/23/22 x2)-ritonavir 100 mg tablet,dose #30 ea pack(EUA) (Paxlovid) cyclobenzaprine 5 mg tablet 5 mg PO TID PRN back pain 7 days 10/21/22 #21 tabs Allergies Allergy/AdvReac Type Severity Reaction Status Date / Time No Known Allergies [NKA] Allergy Verified 10/21/22 07:49 Review of Systems Constitutional: Constitutional: Reports no additional constitutional complaints, Denies chills, Denies fever(s) and Denies night sweats Eyes: Eyes: Reports no additional eye complaints, Denies blurry vision, Denies change in vision, Denies diplopia, Denies eye discharge, Denies loss of vision and Denies eye pain ENT: Denies dizziness Cardiovascular: Cardiovascular: Reports no additional cardiovascular complaints, Denies chest pain, Denies lightheadedness, Denies Loss of Consciousness and Denies dyspnea Respiratory: Respiratory: Reports no additional respiratory complaints and Denies dyspnea Gastrointestinal: Gastrointestinal: Reports no additional gastrointestinal complaints, Denies abdominal pain, Denies melena, Denies hematochezia, Denies change in bowel habits and Denies change in stool character Genitourinary: Genitourinary: Denies hematuria, Denies urinary frequency, Denies dysuria, Denies urinary incontinence, Denies urinary hesitancy and Denies urinary urgency Musculoskeletal: Musculoskeletal: Reports no additional musculoskeletal complaints, Reports back pain, Denies numbness and Denies tingling Neurologic: Denies dizziness, Denies loss of vision, Denies numbness and Denies tingling Psychiatric: Psychiatric: Reports no additional psychiatric complaints Endocrine: Endocrine: Reports no additional endocrine complaints Hematologic/Lymphatic: Hematologic/Lymphatic: Reports no additional hematologic/lymphatic complaints Allergic/Immunologic: Allergic/Immunologic: Reports no additional allergic/immunologic complaints PMFSH Past Medical History Attestation statement: The following information was validated with the patient. Source: old records reviewed and nursing notes reviewed Medical History Hypothyroid Migraine Social History Social History Alcohol intake: never Patient Tobacco Use Status: Never used Tobacco Smoked in Last 30 Days: No Use of substances other than those prescribed or required for medical reasons: No Advance Directives: No Advance Directives Information Provided: Yes Patient : No Physical Exam ED Vital Signs: Vital Signs - 24 hr 10/21/22 07:42 Temperature 97.5 F Pulse Rate 80 Respiratory Rate 18 Blood Pressure 110/48 L Pulse Oximetry 98 Oxygen Delivery Method Room Air BMI result Body Mass Index 32.2 Const General: cooperative, no acute distress, alert and awake Nutritional Appearance: well nourished Orientation/consciousness: patient oriented x3 Limitations: no limitations HENMT Head: Yes normal to inspection and Yes atraumatic Ears: hearing grossly normal bilaterally and external ears normal General nose exam: Normal external nose present, no nasal discharge noted and no epistaxis Face and sinus: Yes normal facial exam, No abrasion and No laceration Mouth: Normal oral and palatal mucosa present, no drooling and no muffled voice Eyes General: appearance normal, both eyes and all related structures Periorbital: periorbital findings normal Eyelids: Yes eyelids normal Conjunctivae: conjunctivae normal Pupils: Equal, round and reactive pupils present EOM: EOMs intact bilaterally Neck Neck: Yes normal visual inspection, Yes full ROM and Yes no lymphadenopathy Chest Chest palpation & inspection: normal inspection of the chest Resp Effort & Inspection: normal respiratory effort and able to speak in complete sentences Auscultation: clear to auscultation bilaterally Cardio Rate: regular rate Rhythm: regular rhythm GI Inspection: Yes normal to inspection Palpation (GI): Soft to palpation, not firm, nontender, no guarding and not rigid General: Yes no CVA tenderness Back/Spine/Pelvis Back: no CVA tenderness Cervical Spine: normal cervical lordosis and cervical ROM normal Thoracic/Lumbar Spine: thoracic and lumbar spine normal to inspection and thoraco-lumbar ROM normal Pelvis: no pain with anterior-posterior compression Neuro General: patient oriented x3 and moves all extremities Cranial nerves: Yes Equal, round and reactive pupils present Cognition (Neuro): normal cognition Motor exam (neuro): 5/5 motor strength present throughout Sensory Exam: Normal double simultaneous stimulation for sensation Coordination: [id number] test normal Extrem General: Yes normal to inspection, Yes full ROM and Yes capillary refill normal Psych Appearance: grossly normal Mental Status: mental status grossly normal Affect: normal affect Attitude: cooperative Thought process: Normal thought process present Thought content: Normal thought content present Insight: Good insight present (Psych) Medications Administered Discontinued Medications Generic Name Dose Route Start Last Admin Trade Name Freq PRN Reason Stop Dose Admin Cyclobenzaprine HCl 5 mg 10/21/22 08:13 10/21/22 08:37 Cyclobenzaprine Hcl 5 Mg Tablet PO 10/21/22 08:14 5 mg ONCE ONE Administration Ketorolac Tromethamine 15 mg 10/21/22 08:13 10/21/22 08:37 Ketorolac Tromethamine 15 Mg/Ml Vial IM 10/21/22 08:14 15 mg ONCE ONE Administration Medical Decision Making Medical Decision Making MDM Narrative: Patient is a 42 year old assigned female at with a history of migraines presenting to the emergency department today with back pain. Patient's physical exam was unremarkable. Patient's EKG was unremarkable. I explained my physical exam findings as well as all test results to the patient. I answered all questions asked by the patient. Patient received PO Flexeril and IM Toradol which she stated helped her symptoms significantly. I stressed the importance of the patient taking her medication as prescribed. I stressed the importance of the patient following up with her primary care provider. I stressed the importance of the patient returning to the emergency department immediately if her symptoms were to worsen or if she were to develop any dizziness, shortness of breath, difficulty breathing, chest pain, blurry vision, loss of vision, nausea, vomiting, abdominal pain, fever, chills, back pain, or any other complaints. Patient verbalized agreement and understanding with this treatment plan and discharge. Differential Diagnosis Differential Diagnoses: The differential diagnosis associated with the presentation includes back pain, sciatica Independent Interpretation I performed an independent interpretation of an: EKG Interpretation: Vent. Rate: 068 BPM ? ? Atrial Rate: 068 BPM P-R Int: 184 ms? QRS Dur: 082 ms QT Int: 382 ms ? ? ? P-R-T Axes: 035 029 -13 degrees QTc Int: 406 ms ? Normal sinus rhythm ST & T wave abnormality, consider anterior ischemia Abnormal ECG When compared with ECG of 06-MAY-2022 14:17, No significant change was found DD/ [id number] Discharge Plan Discharge Clinical Impression: Sciatica Patient Disposition: Home, Self-Care Instructions: Sciatica (ED) Additional Instructions: Follow up with your primary care provider. Return to the emergency department immediately if your symptoms worsen or if you develop any dizziness, shortness of breath, difficulty breathing, chest pain, blurry vision, loss of vision, nausea, vomiting, abdominal pain, fever, chills, back pain, or any other complaints. Prescriptions: New cyclobenzaprine 5 mg tablet 5 mg PO TID PRN (Reason: back pain) 7 Days Qty: 21 0RF No Action benzonatate 150 mg capsule 150 mg PO TID PRN (Reason: cough) Qty: 14 0RF Paxlovid (EUA) 300 mg (150 mg x 2)-100 mg tablets,dose pack See Rx Instructions .ROUTE .COMPLEX Qty: 30 0RF Rx Instructions: take TWO 150 mg tablets of nirmatrelvir with ONE 100 mg tablet of ritonavir twice daily for 5 days codeine-guaifenesin [Guaifenesin AC] 10-100 mg/5 mL liquid 5 ml PO Q6H PRN (Reason: cold symptoms) Qty: 120 0RF oseltamivir [Tamiflu] 75 mg capsule 75 mg PO BID 5 Days Qty: 10 0RF Referrals: Sebastián Treviño III, MD [Primary Care Provider] - Stand Alone Forms: Work/School Release Interventions: ED Discharge Assessment Last Done: 10/21/22 08:46 Discharge Date/Time: 10/21/22 08:46 Print Language: Croatian
--- NOTE | 2022-10-21 08:23 | ECG_ITS ---
Test Reason : chest heaviness/pressure Blood Pressure : / mmHG Vent. Rate : 068 BPM Atrial Rate : 068 BPM P-R Int : 184 ms QRS Dur : 082 ms QT Int : 382 ms P-R-T Axes : 035 029 -13 degrees QTc Int : 406 ms Normal sinus rhythm ST & T wave abnormality, consider anterior ischemia Abnormal ECG When compared with ECG of 06-MAY-2022 14:17, No significant change was found Referred By: Yamilka Austin Electronically Signed By:Romaine Wong
[2022-10-21] MEDS: Ketorolac Tromethamine 15 MG/ML VIAL IM (08:37)
[2022-10-21] MEDS: Cyclobenzaprine HCl 5 MG TABLET PO (08:37)
== END 2022-10-21 08:46 | disposition home or self-care (01) ==
PROVIDERS: Emergency Provider Emergency Medicine; PCP Internal Medicine
DX: M54.41 Lumbago with sciatica, right side (principal)
CPT/HCPCS: 93005; 96372; 99284; J1885

== ENCOUNTER 2023-04-09 03:34 | Emergency (ER) | payer OTHER, SELFPAY ==
--- NOTE | 2023-04-09 | ECG_ITS ---
Test Reason : ABDOMINAL PAIN Blood Pressure : / mmHG Vent. Rate : 071 BPM Atrial Rate : 071 BPM P-R Int : 176 ms QRS Dur : 082 ms QT Int : 384 ms P-R-T Axes : 032 013 010 degrees QTc Int : 417 ms Normal sinus rhythm Nonspecific T wave abnormality Abnormal ECG When compared with ECG of 21-OCT-2022 08:29, No significant change was found Referred By: Generic ED Physician Electronically Signed By:CATALINA ELLSWORTH
--- NOTE | ~2023-04-09 | XR_ITS ---
EXAMINATION: XR CHEST CLINICAL INFORMATION: Shortness of breath COMPARISON: 05/06/2022 TECHNIQUE: Frontal view of the chest was obtained. FINDINGS: No significant abnormality is noted involving the heart, lungs, mediastinum, bony thorax or soft tissues. XR/XR chest 1V IMPRESSION: Unremarkable examination.
[2023-04-09 03:46] VITALS: BP 117/77; PULSE 68; RESP 20; TEMP 36.4; O2SAT 100; BMI 36.3
--- NOTE | 2023-04-09 04:41 | ED_ITS ---
HPI - General Adult General Chief complaint: Abdominal Pain Stated complaint: SOB/Upper abd pain Time Seen by Provider: 04/09/23 04:35 Source: patient Mode of arrival: ambulatory Limitations: no limitations History of Present Illness HPI narrative: Patient comes to the emergency room complaining of substernal/epigastric pressure that has been present for 2 days. Patient states it feels like she is getting stretched on the inside. Patient states it is not necessarily pain, she does not have burning sensation either. Patient states it almost feels like there is something stuck in her esophagus but denies choking or having trouble swallowing food. Patient denies nausea vomiting diarrhea, no chest pain or s hortness of breath Related Data Previous Rx's Medication Instructions Recorded codeine 10 mg-guaifenesin 100 mg/5 5 ml PO Q6H PRN cold symptoms #120 01/16/22 mL oral liquid (Guaifenesin AC) mL oseltamivir 75 mg capsule (Tamiflu) 75 mg PO BID 5 days #10 caps 01/16/22 benzonatate 150 mg capsule 150 mg PO TID PRN cough #14 caps 05/06/22 nirmatrelvir 300 mg (150 mg See Rx Instructions PO .COMPLEX 08/23/22 x2)-ritonavir 100 mg tablet,dose #30 ea pack (Paxlovid) cyclobenzaprine 5 mg tablet 5 mg PO TID PRN back pain 7 days 10/21/22 #21 tabs omeprazole 20 mg capsule,delayed 20 mg PO DAILY #30 caps 04/09/23 release Allergies Allergy/AdvReac Type Severity Reaction Status Date / Time No Known Allergies [NKA] Allergy Verified 10/21/22 07:49 Review of Systems Review of Systems: Constitutional : No Weight loss, No Fever, No Chills, No Night Sweats, No Fatigue, No Malaise ENT/Mouth : No Hearing loss, No Ear Pain, No Nasal Congestion, No Sinus Pain, No Hoarseness, No sore throat, No Rhinorrhea, No Swallowing Difficulty Eyes: No Eye Pain, No Swelling, No Redness, No Foreign Body, No Discharge, No Vision Changes Cardiovascular : Complaining of substernal/epigastric discomfort, pressure, No Chest Pain, No SOB, No Dyspnea on Exertion, No Orthopnea, No Edema, No Palpitations Respiratory : No Cough, No Sputum, No Wheezing, No Smoke Exposure, No Dyspnea Gastrointestinal : No Nausea, No Vomiting, No Diarrhea, No Constipation, No abdominal Pain, No Hematochezia, No Melena Genitourinary : no irregular bleeding, No Dysuria, No Urinary Frequency, No Hematuria, No Urinary Incontinence, No Urgency, No Flank Pain, No Urinary Flow Changes, No Hesitancy Musculoskeletal : No joint pain, No Myalgias, No Joint Swelling Skin : No Skin Lesions, No rash Neuro : No Weakness, No Numbness, No Paresthesias, No Loss of Consciousness, No Dizziness, No Headache Psych : No Anxiety/Panic, No Depression, No SI/HI/AH/VH, No Social Issues, Heme/Lymph: No Bruising, No Bleeding,No Lymphadenopathy Endocrine : No Polyuria, No Polydipsia, No Temperature Intolerance [facility] Past Medical History Medical History Hypothyroid Migraine Social History Social History Alcohol intake: never Patient Tobacco Use Status: Never used Tobacco Advance Directives: No Advance Directives Information Provided: Yes Physical Exam ED Vital Signs: Vital Signs - 24 hr 04/09/23 03:46 Temperature 97.5 F Pulse Rate 68 Respiratory Rate 20 Blood Pressure 117/77 Pulse Oximetry 100 Oxygen Delivery Method Room Air BMI result Body Mass Index 36.3 Const Other: Appearance: Alert. Oriented X3. No acute distress, well-appearing. Eyes: Pupils equal, round and reactive to light. ENT: Pharynx normal. Neck: Normal inspection. Neck supple. No lymph nodes noted. No crepitus CVS: Normal heart rate and rhythm. Pulses normal. Normal S1 and S2 Respiratory: No respiratory distress. Breath sounds normal. No Wheezing. No rales Abdomen: Soft and nontender. No rigidity. No distention. Skin: Skin warm and dry. Normal skin color. Normal skin turgor. Extremities: No lower extremity edema. No Lacerations. No Rash Neuro: Oriented X 3. No motor deficit. No sensory deficit. Moving all extremities. No slurred speech. CN 2 through 12 grossly intact Psych: calm, cooperative, normal affect Course Course Course Narrative: -all patient's labs EKG and imaging pending Medical Decision Making Medical Decision Making MDM Narrative: -patient came in complaining of chest pain versus epigastric pain, initially admission was considered. - my interpretation of EKG: Normal sinus rhythm, heart rate 71, no ST segment depression or elevation, no T-wave inversion, QTC 417 -at this time, patient is asymptomatic. Patient become symptomatic when she lays down and sleeps at night. I discussed with the patient that this is more typical of GERD rather than pulmonary or cardiac etiology. -patient's troponin negative, chest x-ray negative, CBC, chemistry LFTs dimer negative Differential Diagnosis Differential Diagnoses: The differential diagnosis associated with the presentation includes Admission/Observation Consideration of admission/observation: Escalation of care including admission/observation considered Lab Data MDM Lab Attestation statement: I reviewed the patient's lab results. 04/09/23 04:50 04/09/23 04:50 Labs: Lab Results 04/09/23 04/09/23 04/09/23 Range/Units 04:50 04:50 04:50 WBC 6.2 (4.8-10.8) X10*3/uL RBC 4.54 (4.20-5.50) X10*6/uL Hgb 12.9 (12.0-16.0) g/dl Hct 38.7 (37.0-47.0) % MCV 85.2 (80.0-98.0) fL MCH 28.4 (27.0-33.0) pg MCHC 33.3 (31.0-35.0) g/dl RDW 12.1 (11.0-16.0) % Plt Count 234 (160-400) X10*3/uL MPV 11.1 (9.4-12.3) fL Immature Gran % (Auto) 0.5 H (0.0-0.4) % Neut % (Auto) 48.2 (45-73) % Lymph % (Auto) 39.4 (20-40) % [place] % (Auto) 8.8 (2-11) % Eos % (Auto) 2.1 (0-4) % Baso % (Auto) 1.0 (0-2) % Lymph # (Auto) 2.4 (1.2-4.9) X10*3/uL [place] # (Auto) 0.5 (0.1-1.2) X10*3/uL Eos # (Auto) 0.1 (0.0-0.4) X10*3/uL Baso # (Auto) 0.1 (0.0-0.2) X10*3/uL Abs Immat Gran (auto) 0.03 (0.00-0.03) X10*3/uL Absolute Neuts (auto) 3.0 (2.0-8.3) x10*3/uL Absolute Nucleated RBC 0.000 (0.0-0.012) X10*3/uL Nucleated RBC % (auto) 0.0 (0.0-0.2) /100WBC D-Dimer High Sensitivty < 150 NG/ML Sodium 142 (135-145) mmol/L Potassium 3.7 (3.3-5.1) mmol/L Chloride 110 H (96-108) mmol/L Carbon Dioxide 20 L (22-29) mmol/L Anion Gap 16 (12-20) BUN 17 H (9-16) mg/dL Creatinine 0.82 (0.5-1.4) mg/dL Estim Creat Clear Calc 93.2 Estimated GFR > 60 Random Glucose 103 (60-115) mg/dL Calcium 9.3 D (8.4-10.2) mg/dL Total Bilirubin 0.3 (0.0-1.0) mg/dL Direct Bilirubin 0.1 (0.0-0.5) mg/dL AST 25 (5-31) U/L ALT 35 H (0-31) U/L Alkaline Phosphatase 94 (39-117) U/L Troponin I High Sens (<3.5-17.0) ng/L Total Protein 7.1 (6.5-8.0) g/dL Albumin 3.9 (3.5-5.0) g/dL Lipase 24 (8-78) U/L 04/09/23 Range/Units 04:50 WBC (4.8-10.8) X10*3/uL RBC (4.20-5.50) X10*6/uL Hgb (12.0-16.0) g/dl Hct (37.0-47.0) % MCV (80.0-98.0) fL MCH (27.0-33.0) pg MCHC (31.0-35.0) g/dl RDW (11.0-16.0) % Plt Count (160-400) X10*3/uL MPV (9.4-12.3) fL Immature Gran % (Auto) (0.0-0.4) % Neut % (Auto) (45-73) % Lymph % (Auto) (20-40) % [place] % (Auto) (2-11) % Eos % (Auto) (0-4) % Baso % (Auto) (0-2) % Lymph # (Auto) (1.2-4.9) X10*3/uL [place] # (Auto) (0.1-1.2) X10*3/uL Eos # (Auto) (0.0-0.4) X10*3/uL Baso # (Auto) (0.0-0.2) X10*3/uL Abs Immat Gran (auto) (0.00-0.03) X10*3/uL Absolute Neuts (auto) (2.0-8.3) x10*3/uL Absolute Nucleated RBC (0.0-0.012) X10*3/uL Nucleated RBC % (auto) (0.0-0.2) /100WBC D-Dimer High Sensitivty NG/ML Sodium (135-145) mmol/L Potassium (3.3-5.1) mmol/L Chloride (96-108) mmol/L Carbon Dioxide (22-29) mmol/L Anion Gap (12-20) BUN (9-16) mg/dL Creatinine (0.5-1.4) mg/dL Estim Creat Clear Calc Estimated GFR Random Glucose (60-115) mg/dL Calcium (8.4-10.2) mg/dL Total Bilirubin (0.0-1.0) mg/dL Direct Bilirubin (0.0-0.5) mg/dL AST (5-31) U/L ALT (0-31) U/L Alkaline Phosphatase (39-117) U/L Troponin I High Sens < 2.7 (<3.5-17.0) ng/L Total Protein (6.5-8.0) g/dL Albumin (3.5-5.0) g/dL Lipase (8-78) U/L Independent Interpretation I performed an independent interpretation of an: EKG and Plain X-Ray (My interpretations chest x-ray: No no infiltrate) Radiology Impression Discussion of test interpretation with radiology: I have reviewed the radiologist's reading. Radiologist Impression: FINDINGS: No significant abnormality is noted involving the heart, lungs, mediastinum, bony thorax or soft tissues. XR/XR chest 1V IMPRESSION: Unremarkable examination. ? Scores Heart Score History: -0- slightly suspicious ECG: -0- normal Age: -0- < or = 45 Risk factory: -0- no risk factors known Troponin: -0- < or = normal limit Score: 0 Risk: 1.7% Critical Care Time Critical Care Time Critical Care Time: Yes Total Critical Care Time: 30 Attestation: I have personally provided critical care time. Time includes review of lab data, radiology results, discussion with consultants, and monitoring for potential decompensation. Intervention performed as documented. Discharge Plan Discharge Clinical Impression: Chest pain due to GERD Patient Disposition: Home, Self-Care Instructions: Diet for Stomach Ulcers and Gastritis (ED), Gastroesophageal Reflux Disease (ED) Additional Instructions: Please follow-up with your primary care physician tomorrow. If you have any worsening or new symptoms, please return to the emergency room or call 911 Prescriptions: New omeprazole 20 mg capsule,delayed release(DR/EC) 20 mg PO DAILY Qty: 30 0RF No Action benzonatate 150 mg capsule 150 mg PO TID PRN (Reason: cough) Qty: 14 0RF Paxlovid 300 mg (150 mg x 2)-100 mg tablets,dose pack See Rx Instructions .ROUTE .COMPLEX Qty: 30 0RF Rx Instructions: take TWO 150 mg tablets of nirmatrelvir with ONE 100 mg tablet of ritonavir twice daily for 5 days codeine-guaifenesin [Guaifenesin AC] 10-100 mg/5 mL liquid 5 ml PO Q6H PRN (Reason: cold symptoms) Qty: 120 0RF oseltamivir [Tamiflu] 75 mg capsule 75 mg PO BID 5 Days Qty: 10 0RF cyclobenzaprine 5 mg tablet 5 mg PO TID PRN (Reason: back pain) 7 Days Qty: 21 0RF
[2023-04-09 04:54] LABS: MANUAL DIFF FLAG NO
[2023-04-09 04:55] LABS: Basophils Absolute Auto 0.1 X10*3/uL (0.0-0.2); Eosinophils Absolute Auto 0.1 X10*3/uL (0.0-0.4); Eosinophils Percent Auto 2.1 % (0-4); Hematocrit 38.7 % (37.0-47.0); Hemoglobin 12.9 g/dl (12.0-16.0); Imm Gran Abs Auto 0.03 X10*3/uL (0.00-0.03); Imm Gran Pct Auto 0.5 % (0.0-0.4); Lymphocytes Absolute Auto 2.4 X10*3/uL (1.2-4.9); Lymphocytes Percent Auto 39.4 % (20-40); Mean Corpuscular HGB Conc 33.3 g/dl (31.0-35.0); Mean Corpuscular Hemoglobin 28.4 pg (27.0-33.0); Mean Corpuscular Volume 85.2 fL (80.0-98.0); Mean Platelet Volume 11.1 fL (9.4-12.3); Monocytes Absolute Auto 0.5 X10*3/uL (0.1-1.2); Monocytes Percent Auto 8.8 % (2-11); Neutrophils Percent Auto 48.2 % (45-73); Platelet Count 234 X10*3/uL (160-400); Red Blood Count 4.54 X10*6/uL (4.20-5.50); Red Cell Distribution Width 12.1 % (11.0-16.0); White Blood Count 6.2 X10*3/uL (4.8-10.8)
[2023-04-09 05:10] LABS: Alanine Aminotransferase 35 U/L (0-31); Albumin Level 3.9 g/dL (3.5-5.0); Alkaline Phosphatase 94 U/L (39-117); Anion Gap 16 (12-20); Aspartate Amino Transferase 25 U/L (5-31); Bilirubin Direct 0.1 mg/dL (0.0-0.5); Bilirubin Total 0.3 mg/dL (0.0-1.0); Blood Urea Nitrogen 17 mg/dL (9-16); Calcium 9.3 mg/dL (8.4-10.2); Carbon Dioxide 20 mmol/L (22-29); Chloride 110 mmol/L (96-108); Creatinine Clr Calc Pharmacy 93.2; Estimated Glomerular Filt Rate > 60; Glucose Random 103 mg/dL (60-115); Lipase 24 U/L (8-78); Potassium 3.7 mmol/L (3.3-5.1); Sodium 142 mmol/L (135-145); Total Protein 7.1 g/dL (6.5-8.0)
[2023-04-09 05:14] LABS: D Dimer High Sensitivity < 150 NG/ML
[2023-04-09 05:23] LABS: Troponin-I High Sensitivity < 2.7 ng/L (<3.5-17.0)
[2023-04-09] MEDS: Omeprazole 20 MG CAPSULE.DR PO (06:06)
== END 2023-04-09 06:09 | disposition home or self-care (01) ==
PROVIDERS: Emergency Provider Emergency Medicine; PCP Internal Medicine
DX: R07.89 Other chest pain (principal); K21.9 Gastro-esophageal reflux disease without esophagitis; Z79.899 Other long term (current) drug therapy
CPT/HCPCS: 36415; 71045; 80053; 82248; 83690; 84484; 85025; 85379; 93005; 99283; 99284

== ENCOUNTER → 2023-04-09 04:40 | Outpatient (BNV) | payer OTHER, SELFPAY | PROVIDERS: Emergency Provider Emergency Medicine; PCP Internal Medicine; Visit Provider Internal Medicine | DX: R10.9 Unspecified abdominal pain (principal); R94.31 Abnormal electrocardiogram [ECG] [EKG] | CPT/HCPCS: 93010 ==

== ENCOUNTER 2023-09-13 09:23 | Emergency (ER) | payer OTHER, SELFPAY ==
[2023-09-13 09:32] VITALS: BP 118/69; PULSE 81; RESP 18; TEMP 36.7; O2SAT 97
--- NOTE | 2023-09-13 09:38 | ED.GENADULT ---
HPI - General Adult General Chief complaint: Upper Respiratory Symptoms Stated complaint: sore throat Time Seen by Provider: 09/13/23 09:28 Source: patient Mode of arrival: ambulatory Limitations: no limitations History of Present Illness HPI narrative: Patient is a 43 year old assigned female at with a history of migraines and hypothyroidism presenting to the emergency department today with a sore throat, body aches, and headache. Patient states that over the last 4 days, she has had these symptoms and has been around COVID-19 positive individuals. Patient denies any dizziness, lightheadedness, abdominal pain, nausea, vomiting, fever, chills, blurry vision, double vision, loss of vision, chest pain, difficulty breathing, shortness of breath, back pain, night sweats, pain with urination, increased urinary frequency, increased urinary urgency, blood in her urine or stool, syncope or a near syncopal episode, recent trauma or falls, bowel incontinence, bladder incontinence, bowel retention, bladder retention, or any other complaints at this time. Onset (ago): day(s) (4) Severity: mild Relieving factors: none Exacerbating factors: none Associated symptoms: headaches Treatments prior to arrival: none Related Data Previous Rx's Medication Instructions Recorded codeine 10 mg-guaifenesin 100 mg/5 5 ml PO Q6H PRN cold symptoms #120 01/16/22 mL oral liquid (Guaifenesin AC) mL oseltamivir 75 mg capsule (Tamiflu) 75 mg PO BID 5 days #10 caps 01/16/22 benzonatate 150 mg capsule 150 mg PO TID PRN cough #14 caps 05/06/22 nirmatrelvir 300 mg (150 mg See Rx Instructions PO .COMPLEX 08/23/22 x2)-ritonavir 100 mg tablet,dose #30 ea pack (Paxlovid) cyclobenzaprine 5 mg tablet 5 mg PO TID PRN back pain 7 days 10/21/22 #21 tabs omeprazole 20 mg capsule,delayed 20 mg PO DAILY #30 caps 04/09/23 release Allergies Allergy/AdvReac Type Severity Reaction Status Date / Time No Known Allergies [NKA] Allergy Verified 10/21/22 07:49 Review of Systems Constitutional: Constitutional: Reports no additional constitutional complaints, Reports body ache(s), Denies chills, Denies fever(s), Reports headache(s) and Denies night sweats Eyes: Eyes: Reports no additional eye complaints, Denies blurry vision, Denies change in vision, Denies diplopia, Denies eye discharge, Denies loss of vision and Denies eye pain ENT: Denies dizziness, Reports headache(s) and Reports sore throat Cardiovascular: Cardiovascular: Reports no additional cardiovascular complaints, Denies chest pain, Denies lightheadedness, Denies Loss of Consciousness and Denies dyspnea Respiratory: Respiratory: Reports no additional respiratory complaints and Denies dyspnea Gastrointestinal: Gastrointestinal: Reports no additional gastrointestinal complaints, Denies abdominal pain, Denies melena, Denies hematochezia, Denies change in bowel habits and Denies change in stool character Genitourinary: Genitourinary: Denies hematuria, Denies urinary frequency, Denies dysuria, Denies urinary incontinence, Denies urinary hesitancy and Denies urinary urgency Musculoskeletal: Musculoskeletal: Reports no additional musculoskeletal complaints, Denies numbness and Denies tingling Neurologic: Denies dizziness, Reports headache(s), Denies loss of vision, Denies numbness and Denies tingling Psychiatric: Psychiatric: Reports no additional psychiatric complaints Endocrine: Endocrine: Reports no additional endocrine complaints Hematologic/Lymphatic: Hematologic/Lymphatic: Reports no additional hematologic/lymphatic complaints Allergic/Immunologic: Allergic/Immunologic: Reports no additional allergic/immunologic complaints PMFSH Past Medical History Attestation statement: The following information was validated with the patient. Source: old records reviewed and nursing notes reviewed Onset Date is defined in the Problem List Problems that require an onset date and time if occurred within 24 hrs of arrival to the ED Aortic Dissection and Rupture; Neurologic impairment; Cardiopulmonary Arrest; Endotracheal Intubation; Insertion or Replacement of Mechanical Circulatory Assist Device Medical History Hypothyroid Migraine Social History Social History Alcohol intake: never Patient Tobacco Use Status: Never used Tobacco Advance Directives: No Advance Directives Information Provided: Yes Physical Exam ED Vital Signs: Vital Signs - 24 hr 09/13/23 09:32 09/13/23 09:48 Temperature 98.0 F 98.0 F Pulse Rate 81 81 Respiratory Rate 18 18 Blood Pressure 118/69 Pulse Oximetry 97 97 Oxygen Delivery Method Room Air Room Air BMI result Body Mass Index 36.2 Const General: cooperative, no acute distress, alert and awake Nutritional Appearance: well nourished Orientation/consciousness: patient oriented x3 Limitations: no limitations HENMT Head: Yes normal to inspection and Yes atraumatic Ears: hearing grossly normal bilaterally and external ears normal General nose exam: Normal external nose present, no nasal discharge noted and no epistaxis Face and sinus: Yes normal facial exam, No abrasion and No laceration Mouth: Normal oral and palatal mucosa present, no drooling and no muffled voice Eyes General: appearance normal, both eyes and all related structures Periorbital: periorbital findings normal Eyelids: Yes eyelids normal Conjunctivae: conjunctivae normal Pupils: Equal, round and reactive pupils present EOM: EOMs intact bilaterally Neck Neck: Yes normal visual inspection, Yes full ROM and Yes no lymphadenopathy Chest Chest palpation & inspection: normal inspection of the chest Resp Effort & Inspection: normal respiratory effort and able to speak in complete sentences GI Inspection: Yes normal to inspection Neuro General: patient oriented x3 and moves all extremities Cranial nerves: Yes Equal, round and reactive pupils present Cognition (Neuro): normal cognition Motor exam (neuro): 5/5 motor strength present throughout Sensory Exam: Normal double simultaneous stimulation for sensation Coordination: [id number] test normal Extrem General: Yes normal to inspection, Yes full ROM and Yes capillary refill normal Psych Appearance: grossly normal Mental Status: mental status grossly normal Affect: normal affect Attitude: cooperative Thought process: Normal thought process present Thought content: Normal thought content present Insight: Good insight present (Psych) Medical Decision Making Medical Decision Making MDM Narrative: Patient is a 43 year old assigned female at with a history of migraine and hypothyroidism presenting to the emergency department today with a sore throat, body aches, and headache. Patient's physical exam was unremarkable. Patient's COVID-19 test was positive. Patient's RSV, influenza, and strep tests are all negative. I explained my physical exam findings as well as all test results to the patient. I answered all questions asked by the patient. I stressed the importance of the patient taking her medication as prescribed. I stressed the importance of the patient following up with her primary care provider. I stressed the importance of the patient returning to the emergency department immediately if her symptoms were to worsen or if she were to develop any dizziness, shortness of breath, difficulty breathing, chest pain, blurry vision, loss of vision, nausea, vomiting, abdominal pain, fever, chills, back pain, or any other complaints. Patient verbalized agreement and understanding with this treatment plan and discharge. Differential Diagnosis Differential Diagnoses: The differential diagnosis associated with the presentation includes COVID-19 RSV Influenza URI Admission/Observation Consideration of admission/observation: Escalation of care including admission/observation considered Patient would have been admitted to the hospital had her work up had any findings where hospital admission was appropriate and her clinical presentation warranted hospital admission. Lab Data [facility] Lab Attestation statement: I reviewed the patient's lab results. My interpretation of these results are in the [facility] Rationale portion of this note. Labs: Lab Results 09/13/23 Range/Units 09:34 Influenza Type A (PCR) NEGATIVE (Negative) Influenza Type B (PCR) NEGATIVE (Negative) RSV RNA Qual (PCR) NEGATIVE (Negative) SARS-CoV-2 RNA (RT-PCR) POSITIVE A (Negative) S. pyogenes GrpA JONI Negative (Negative) Discharge Plan Discharge Clinical Impression: COVID-19 Patient Disposition: Home, Self-Care Instructions: COVID-19 (Coronavirus Disease 2019) (ED) Additional Instructions: Follow up with your primary care provider. Return to the emergency department immediately if your symptoms worsen or if you develop any dizziness, shortness of breath, difficulty breathing, chest pain, blurry vision, loss of vision, nausea, vomiting, abdominal pain, fever, chills, back pain, or any other complaints. Prescriptions: No Action benzonatate 150 mg capsule 150 mg PO TID PRN (Reason: cough) Qty: 14 0RF Paxlovid 300 mg (150 mg x 2)-100 mg tablets,dose pack See Rx Instructions .ROUTE .COMPLEX Qty: 30 0RF Rx Instructions: take TWO 150 mg tablets of nirmatrelvir with ONE 100 mg tablet of ritonavir twice daily for 5 days codeine-guaifenesin [Guaifenesin AC] 10-100 mg/5 mL liquid 5 ml PO Q6H PRN (Reason: cold symptoms) Qty: 120 0RF oseltamivir [Tamiflu] 75 mg capsule 75 mg PO BID 5 Days Qty: 10 0RF cyclobenzaprine 5 mg tablet 5 mg PO TID PRN (Reason: back pain) 7 Days Qty: 21 0RF omeprazole 20 mg capsule,delayed release(DR/EC) 20 mg PO DAILY Qty: 30 0RF Referrals: Sebastián Treviño III, MD [Primary Care Provider] - Stand Alone Forms: Work/School Release Interventions: ED Discharge Assessment Last Done: 09/13/23 11:46 Discharge Date/Time: 09/13/23 11:47 Print Language: Estonian
[2023-09-13 09:48] VITALS: PULSE 81; RESP 18; TEMP 36.7; O2SAT 97; BMI 36.2
== END 2023-09-13 11:47 | disposition home or self-care (01) ==
PROVIDERS: Emergency Provider Student in an Organized Health Care Education/Training Program; PCP Internal Medicine
DX: U07.1 COVID-19 (principal); J02.9 Acute pharyngitis, unspecified
CPT/HCPCS: 0241U; 87651; 99283

== ENCOUNTER 2024-03-01 08:25 | Emergency (ER) | payer OTHER, SELFPAY ==
[2024-03-01 08:29] VITALS: BP 110/72; PULSE 99; RESP 20; TEMP 36.2; O2SAT 97; BMI 33.4
[2024-03-01 09:09] LABS: IDNOW Serial# 08D9AD1C; Strep A Nucleic Acid Negative (Negative)
--- NOTE | 2024-03-01 09:40 | ED.URI ---
HPI - URI/Sore Throat General Chief Complaint: Upper Respiratory Symptoms Stated Complaint: Sore throat Time Seen by Provider: 03/01/24 09:02 Source: patient Mode of arrival: ambulatory Limitations: no limitations History of Present Illness HPI Narrative: 44-year-old female with no significant past medical history presents emergency department with complaints of a sore throat and cough for the past 24 hours. She reports the back of her throat is ?red and swollen?. She states she has had difficulty speaking as she has lost her voice. She reports that she had a low-grade fever yesterday but denies any fever today. She states she has been able to swallow and tolerate secretions without issue. Pertinent positives and negatives discussed in HPI Related Data Previous Rx's ?Medication ?Instructions ?Recorded codeine 10 mg-guaifenesin 100 mg/5 5 ml PO Q6H PRN cold symptoms #120 01/16/22 mL oral liquid (Guaifenesin AC) mL oseltamivir 75 mg capsule (Tamiflu) 75 mg PO BID 5 days #10 caps 01/16/22 benzonatate 150 mg capsule 150 mg PO TID PRN cough #14 caps 05/06/22 nirmatrelvir 300 mg (150 mg See Rx Instructions PO .COMPLEX 08/23/22 x2)-ritonavir 100 mg tablet,dose #30 ea pack (Paxlovid) cyclobenzaprine 5 mg tablet 5 mg PO TID PRN back pain 7 days 10/21/22 #21 tabs omeprazole 20 mg capsule,delayed 20 mg PO DAILY #30 caps 04/09/23 release prednisone 50 mg tablet 50 mg PO DAILY #5 tabs 03/01/24 Allergies Allergy/AdvReac Type Severity Reaction Status Date / Time No Known Allergies [NKA] Allergy Verified 03/01/24 08:30 Review of Systems Review of Systems: Yes all other systems are reviewed and are negative [facility] Past Medical History Medical History Hypothyroid Migraine Social History Social History Alcohol intake: never Patient Tobacco Use Status: Never used Tobacco Advance Directives: No Advance Directives Information Provided: Yes Do you have a plan to hurt others: No Plan Physical Exam Vital Signs: Vital Signs: Last Vital Signs Temp 97.2 F 03/01/24 09:57 Pulse 99 03/01/24 09:57 Resp 20 03/01/24 09:57 BP 110/72 03/01/24 09:57 Pulse Ox 97 03/01/24 09:57 O2 Del Method Room Air 03/01/24 09:57 BMI result Body Mass Index 33.4 Nursing notes and vital signs reviewed. GENERAL APPEARANCE: A&0 x 4, generally well appearing, no acute distress HENMT: Normal to inspection, atraumatic, face symmetrical. Normal external ears, nose. Bilateral tonsils 3+ without exudate EYE: PERRLA, EOM intact, structures appear normal NECK: Supple without stiffness or restricted ROM. HEART: Normal rate and regular rhythm, normal S1/S2, no M/R/G LUNGS: LS CTA, moving air well. Able to speak in complete sentences. No crackles, wheezes, or rhonchi auscultated BACK: No CVAT, no obvious deformity EXTREMITIES: Moving all extremities without difficulty. Normal capillary refill. NEUROLOGICAL: Alert and oriented, moving all 4 extremities with equal strength. CN not formally tested but appearing grossly intact. Observed to ambulate with normal gait. Cognition normal SKIN: Warm and dry without any lesions, rash, or visible sores Medical Decision Making Medical Decision Making MDM Narrative: Old records reviewed for previous imaging, lab studies, ECGs, and notes. Patient was assessed the emergency department with no acute distress or toxicity noted. Rapid strep negative. Patient educated to increase fluid intake to prevent dehydration and eat cool foods. Patient educated that she needs [id number] lozenges sprays for comfort. Five day course of prednisone sent to patient's preferred pharmacy for management of tonsillitis/pharyngitis and tonsillar swelling. Patient is safe for discharge at this time with plan for [id number] Tylenol and/or NSAID such as ibuprofen or naproxen for fever/discomfort with dosing as per packaging. HPI, PE, diagnostics, and plan discussed with patient and family with no unanswered questions at this time. Strict return precautions given to return to the emergency department with new, worsening, or concerning emergent symptoms. Recommended to follow-up with there primary care provider in 24-48 hours for further treatment and management. Differential Diagnosis Differential Diagnoses: The differential diagnosis associated with the presentation includes But not limited to viral syndrome, strep pharyngitis, tonsillitis, peritonsillar abscess, angioedema, sepsis, malignancy Lab Data MDM Lab Attestation statement: I reviewed the patient's lab results. Labs: Lab Results 03/01/24 Range/Units 08:46 S. pyogenes GrpA JONI Negative (Negative) Prescription Management I considered prescription management with: Antibiotic Antibiotics were considered, however; no bacterial infection was identified at this time. Discharge Plan Discharge Clinical Impression: Pharyngitis Patient Disposition: Home, Self-Care Instructions: Pharyngitis (ED), Upper Respiratory Infection (ED) Additional Instructions: Your seen in the emergency department for concerns of sore throat. Your rapid strep was negative. The swab was sent to rule out additional strains strep pharyngitis. Steroids have been sent to your preferred pharmacy for management of sore throat and inflammation. Please use full course as directed. Please increase your fluid intake to prevent dehydration. You may use [id number] Cepacol, for management of sore throat. Please eat soft, cool foods until symptoms have resolved You are safe for discharge at this time with plan for management of fever or discomfort with [id number] Tylenol and/or NSAID such as ibuprofen or naproxen with dosing as per packaging. Please return to the emergency department with new, worsening, or concerning emergent symptoms. Recommended to follow-up with your primary care provider in 24-48 hours for further treatment and management. Thank you for choosing [facility]. Prescriptions: New prednisone 50 mg tablet 50 mg PO DAILY Qty: 5 0RF No Action benzonatate 150 mg capsule 150 mg PO TID PRN (Reason: cough) Qty: 14 0RF Paxlovid 300 mg (150 mg x 2)-100 mg tablets,dose pack See Rx Instructions .ROUTE .COMPLEX Qty: 30 0RF Rx Instructions: take TWO 150 mg tablets of nirmatrelvir with ONE 100 mg tablet of ritonavir twice daily for 5 days codeine-guaifenesin [Guaifenesin AC] 10-100 mg/5 mL liquid 5 ml PO Q6H PRN (Reason: cold symptoms) Qty: 120 0RF oseltamivir [Tamiflu] 75 mg capsule 75 mg PO BID 5 Days Qty: 10 0RF cyclobenzaprine 5 mg tablet 5 mg PO TID PRN (Reason: back pain) 7 Days Qty: 21 0RF omeprazole 20 mg capsule,delayed release(DR/EC) 20 mg PO DAILY Qty: 30 0RF Referrals: Sebastián Treviño III, MD [Primary Care Provider] - Stand Alone Forms: Work/School Release Interventions: ED Discharge Assessment Last Done: 03/01/24 09:57 Discharge Date/Time: 03/01/24 09:57 Print Language: Welsh
[2024-03-01 09:57] VITALS: BP 110/72; PULSE 99; RESP 20; TEMP 36.2; O2SAT 97
== END 2024-03-01 09:57 | disposition home or self-care (01) ==
PROVIDERS: Emergency Provider Emergency Medicine; PCP Internal Medicine
DX: J02.9 Acute pharyngitis, unspecified (principal); R50.9 Fever, unspecified; Z79.899 Other long term (current) drug therapy
CPT/HCPCS: 87651; 99282; 99283

== ENCOUNTER 2024-05-13 12:14 | Emergency (ER) | payer OTHER, SELFPAY ==
--- NOTE | ~2024-05-13 | CT_ITS ---
EXAMINATION: CT HEAD WITHOUT CONTRAST CLINICAL INFORMATION: Blurred vision, dizziness COMPARISON: Head CT on 09/17/2018 TECHNIQUE: Contiguous axial imaging was performed from the skull base to vertex without intravenous administration of contrast. This CT examination was performed using dose optimization techniques as appropriate, variously including the following: *Automated exposure control *Adjustment of mA and/or kV according to patient size (this includes techniques or standardized protocols for targeted exams where dose is matched to indication/reason for exam; i.e. extremities or head) *Use of iterative reconstruction technique DLP: 663 mGy-cm RESULTS: There is no evidence of acute intracranial hemorrhage, acute large vessel infarct, midline shift or mass effect. The bagley-white differentiation is preserved. The ventricles and sulci are within normal limits in size and configuration. There is no evidence of hydrocephalus. There are no extraaxial collections. Osseous structures are intact. Paranasal sinuses and mastoid air cells are well aerated. CT/CT head/brain wo IV con IMPRESSION: Unremarkable non-contrast CT of the brain. Electronically signed by: Erin Shultz MD 05/13/2024 02:43 PM EDT
[2024-05-13 12:44] VITALS: BP 118/85; PULSE 87; RESP 20; TEMP 37.2; O2SAT 98; BMI 34.0
--- NOTE | 2024-05-13 12:46 | ED_ITS ---
HPI - Headache General Stated Complaint: Migraine 2 weeks Related Data Previous Rx's ?Medication ?Instructions ?Recorded codeine 10 mg-guaifenesin 100 mg/5 5 ml PO Q6H PRN cold symptoms #120 01/16/22 mL oral liquid (Guaifenesin AC) mL oseltamivir 75 mg capsule (Tamiflu) 75 mg PO BID 5 days #10 caps 01/16/22 benzonatate 150 mg capsule 150 mg PO TID PRN cough #14 caps 05/06/22 nirmatrelvir 300 mg (150 mg See Rx Instructions PO .COMPLEX 08/23/22 x2)-ritonavir 100 mg tablet,dose #30 ea pack (Paxlovid) cyclobenzaprine 5 mg tablet 5 mg PO TID PRN back pain 7 days 10/21/22 #21 tabs omeprazole 20 mg capsule,delayed 20 mg PO DAILY #30 caps 04/09/23 release prednisone 50 mg tablet 50 mg PO DAILY #5 tabs 03/01/24 Allergies Allergy/AdvReac Type Severity Reaction Status Date / Time No Known Allergies [NKA] Allergy Verified 05/13/24 12:48 PENDING SALE TO [facility] Past Medical History Medical History Hypothyroid Migraine Social History Social History Alcohol intake: never Patient Tobacco Use Status: Never used Tobacco Course Course Course Narrative: This is a Rapid Medical Examination (RME) performed by Gayatri Nugent PA-C in triage. Full HPI, ROS, assessment and treatment plan per primary provider in the Main ED. 44 yo female with history of migraines presents to the ER for evaluation of frontal headache x2 weeks and dizziness for the last 3 days. no relief with iburprofen. headache feels like her usual migraine but dizziness is not normal for her. She also endorses intermittently having blurred vision which is new. No weakness, numbness or tingling. no current vision symptoms. endorses fatigue. headache 04/17 currently Plan: CT head, treat headache and reassess Discharge Plan Discharge Prescriptions: No Action benzonatate 150 mg capsule 150 mg PO TID PRN (Reason: cough) Qty: 14 0RF Paxlovid 300 mg (150 mg x 2)-100 mg tablets,dose pack See Rx Instructions .ROUTE .COMPLEX Qty: 30 0RF Rx Instructions: take TWO 150 mg tablets of nirmatrelvir with ONE 100 mg tablet of ritonavir twice daily for 5 days codeine-guaifenesin [Guaifenesin AC] 10-100 mg/5 mL liquid 5 ml PO Q6H PRN (Reason: cold symptoms) Qty: 120 0RF oseltamivir [Tamiflu] 75 mg capsule 75 mg PO BID 5 Days Qty: 10 0RF cyclobenzaprine 5 mg tablet 5 mg PO TID PRN (Reason: back pain) 7 Days Qty: 21 0RF omeprazole 20 mg capsule,delayed release(DR/EC) 20 mg PO DAILY Qty: 30 0RF prednisone 50 mg tablet 50 mg PO DAILY Qty: 5 0RF Print Language: [place]
[2024-05-13 13:31] LABS: COVID-19 Test Negative (Negative); IDNOW Serial# 152EDE1D
--- NOTE | 2024-05-13 15:25 | ED.HA ---
HPI - Headache General Chief Complaint: Headache Stated Complaint: Migraine 2 weeks Time Seen by Provider: 05/13/24 15:21 Source: patient Mode of arrival: ambulatory Limitations: no limitations History of Present Illness ED Provider: Tino PERSAUD HPI Narrative: This is a 44-year-old female history of migraines, hypothyroid presenting to the emergency department with complaints of headache in the frontal region for the past 2 weeks, patient reports associated fatigue, malaise and lightheadedness. She states at times when the pain is bad she gets intermittent blurred vision however this does not last very long it lasts few seconds and subsides on its own. She typically takes ibuprofen with good relief however this time ibuprofen is not helping symptoms. She reports this is not feel like her typical migraine. Denies head trauma. Denies fevers, neck pain, chills, nausea, vomiting, abdominal pain, chest pain, shortness of breath, visual disturbances, weakness. NIH stroke scale 0 Related Data Previous Rx's ?Medication ?Instructions ?Recorded codeine 10 mg-guaifenesin 100 mg/5 5 ml PO Q6H PRN cold symptoms #120 01/16/22 mL oral liquid (Guaifenesin AC) mL oseltamivir 75 mg capsule (Tamiflu) 75 mg PO BID 5 days #10 caps 01/16/22 benzonatate 150 mg capsule 150 mg PO TID PRN cough #14 caps 05/06/22 nirmatrelvir 300 mg (150 mg See Rx Instructions PO .COMPLEX 08/23/22 x2)-ritonavir 100 mg tablet,dose #30 ea pack (Paxlovid) cyclobenzaprine 5 mg tablet 5 mg PO TID PRN back pain 7 days 10/21/22 #21 tabs omeprazole 20 mg capsule,delayed 20 mg PO DAILY #30 caps 04/09/23 release prednisone 50 mg tablet 50 mg PO DAILY #5 tabs 03/01/24 acetaminophen 325 mg capsule 650 mg (2 x 325 mg) PO Q6H PRN 05/13/24 (Tylenol) pain #30 caps diphenhydramine HCl 25 mg capsule 25 mg PO TID PRN allergic reaction 05/13/24 (Benadryl) #20 caps ketorolac 10 mg tablet 10 mg PO TID PRN pain 5 days #15 05/13/24 tabs metoclopramide HCl 10 mg tablet 10 mg PO Q6H PRN headache #20 tabs 05/13/24 (Reglan) Allergies Allergy/AdvReac Type Severity Reaction Status Date / Time No Known Allergies [NKA] Allergy Verified 05/13/24 12:48 Review of Systems Review of Systems: Yes all other systems are reviewed and are negative [facility] Past Medical History Attestation statement: The following information was validated with the patient. Source: old records reviewed and nursing notes reviewed Medical History Hypothyroid Migraine Social History Social History Alcohol intake: never Patient Tobacco Use Status: Never used Tobacco Advance Directives: No Advance Directives Information Provided: No Do you have a plan to hurt others: No Plan Physical Exam Vital Signs: Vital Signs: Last Vital Signs Temp 98.9 F 05/13/24 12:44 Pulse 84 05/13/24 15:31 Resp 20 05/13/24 12:44 BP 124/78 05/13/24 15:31 Pulse Ox 98 05/13/24 12:44 O2 Del Method Room Air 05/13/24 12:44 BMI result Body Mass Index 34.0 Vital signs stable Appearance: Alert.? Oriented X3.? No acute distress.? Head: Normocephalic, atraumatic, no step-offs or deformities + TTP to scalp and temporal region Eyes: Pupils equal, round and reactive to light.? Neck: Normal inspection.? Neck supple.? CVS: Normal heart rate and rhythm.? Pulses normal.? Respiratory: No respiratory distress.? Breath sounds normal.? Abdomen: Soft and nontender.? Skin: Skin warm and dry.? Normal skin color.? Normal skin turgor.? Extremities: No lower extremity edema.? No calf ttp. 5/5 strength to bilateral upper and lower extremities Back: No midline tenderness, no C-spine tenderness, full range of motion, no CVA tenderness bilaterally Neuro: Oriented X 3.? No motor deficit.? No sensory deficit. CN 2-12 intact . Normal [id number], [id number] steady tandem gait normal coordination. Course Reevaluation(s) Reevaluation #1: Patient feeling better still has a slight headache however much improved. Normal neurological assessment. Tylenol will be given at this time. Continues to have frontal headache and scalp tenderness. Will discharge patient home with prednisone 60 mg x 5 days. Will give Tylenol and prednisone here prior to her leaving. Discuss this case with vascular Dr. Prado who agrees with my plan. Will have her call the office for fu Time: 17:20 Reevaluation #2: Educated patient on diagnosis and treatment plan, answered all question, patient verbalizes understanding. At this time patient will be discharged home, advised to return with new or worsening symptoms. Educated on worrisome signs and symptoms and when to return. At this time I feel comfortable discharge home. Medications Administered Discontinued Medications Generic Name Dose Route Start Last Admin Trade Name Freq PRN Reason Stop Dose Admin Diphenhydramine HCl 25 mg 05/13/24 15:24 05/13/24 16:04 Diphenhydramine Hcl 25 Mg Capsule PO 05/13/24 15:25 25 mg ONCE ONE Administration Ketorolac Tromethamine 30 mg 05/13/24 15:24 05/13/24 16:05 Ketorolac Tromethamine 30 Mg/Ml Vial IM 05/13/24 15:25 30 mg ONCE ONE Administration Metoclopramide HCl 10 mg 05/13/24 15:24 05/13/24 16:04 Metoclopramide Hcl 10 Mg Tablet PO 05/13/24 15:25 10 mg ONCE ONE Administration Medical Decision Making Medical Decision Making [facility] Narrative: 1525 44-year-old female presents with frontal headache for the past 2 weeks with associated fatigue, malaise and lightheadedness. Physical exam + TTP to scalp and temporal region . NIH stroke scale 0. Cerebellar function intact. History and physical exam concerning for headache versus migraine. Will rule out temporal arteritis. Will rule out metabolic derangements and intracranial etiologies. I do not suspect stroke, posterior stroke, intracranial hemorrhage. Plan labs, visual acuity, head CT, orthostatic vital signs Differential Diagnosis Differential Diagnoses: The differential diagnosis associated with the presentation includes History and physical exam concerning for headache versus migraine. Will rule out temporal arteritis. Will rule out metabolic derangements and intracranial etiologies. I do not suspect stroke, posterior stroke, intracranial hemorrhage. Admission/Observation Consideration of admission/observation: Escalation of care including admission/observation considered Possible Lab Data [facility] Lab Attestation statement: I reviewed the patient's lab results. 05/13/24 15:39 05/13/24 15:39 Labs: Lab Results 05/13/24 05/13/24 Range/Units 13:05 15:39 WBC 6.6 (4.8-10.8) X10*3/uL RBC 4.95 (4.20-5.50) X10*6/uL Hgb 14.2 (12.0-16.0) g/dl Hct 42.1 (37.0-47.0) % MCV 85.1 (80.0-98.0) fL MCH 28.7 (27.0-33.0) pg MCHC 33.7 (31.0-35.0) g/dl RDW 12.0 (11.0-16.0) % Plt Count 248 (160-400) X10*3/uL MPV 10.6 (9.4-12.3) fL Immature Gran % (Auto) 0.3 (0.0-0.4) % Neut % (Auto) 57.5 (45-73) % Lymph % (Auto) 31.3 (20-40) % [place] % (Auto) 7.8 (2-11) % Eos % (Auto) 2.0 (0-4) % Baso % (Auto) 1.1 (0-2) % Lymph # (Auto) 2.1 (1.2-4.9) X10*3/uL [place] # (Auto) 0.5 (0.1-1.2) X10*3/uL Eos # (Auto) 0.1 (0.0-0.4) X10*3/uL Baso # (Auto) 0.1 (0.0-0.2) X10*3/uL Abs Immat Gran (auto) 0.02 (0.00-0.03) X10*3/uL Absolute Neuts (auto) 3.8 (2.0-8.3) x10*3/uL Absolute Nucleated RBC 0.000 (0.0-0.012) X10*3/uL Nucleated RBC % (auto) 0.0 (0.0-0.2) /100WBC ESR 13 (0-20) MM/HR Sodium 141 (135-145) mmol/L Potassium 3.9 (3.3-5.1) mmol/L Chloride 105 (96-108) mmol/L Carbon Dioxide 28 (22-29) mmol/L Anion Gap 12 (12-20) BUN 10 (9-16) mg/dL Creatinine 0.87 (0.5-1.4) mg/dL Estim Creat Clear Calc 90.4 Estimated GFR > 60 Random Glucose 91 (60-115) mg/dL Calcium 10.0 D (8.4-10.2) mg/dL Total Bilirubin 0.5 (0.0-1.0) mg/dL AST 26 (5-31) U/L ALT 37 H (0-31) U/L Alkaline Phosphatase 106 (39-117) U/L C-Reactive Protein 2.25 H (< or = 0.50) mg/dL Total Protein 8.4 H (6.5-8.0) g/dL Albumin 4.5 (3.5-5.0) g/dL COVID-19 (MAHIN) Negative (Negative) COVID-19 Clin Com See Note Independent Interpretation I performed an independent interpretation of an: CT Scan (CT/CT head/brain wo IV con IMPRESSION: Unremarkable non-contrast CT of the brain.) Radiology Impression Discussion of test interpretation with radiology: I have reviewed the radiologist's reading. External Record Review External record reviewed: Office record, Outpatient record, Prior outpatient labs and Prior outpatient radiology Chronic Conditions Patient?s care impacted by: Other (Migraines, hypothyroid) Critical Care Time Critical Care Time Critical Care Time: Yes Total Critical Care Time: 35 Attestation: I attest to this time spent taking care of the patient, obtaining history, physical, reviewing labs, imaging, treatment of patients condition +/- specialist/hospitalist consult Discharge Plan Discharge Clinical Impression: Migraine Patient Disposition: Home, Self-Care Instructions: Migraine Headache (ED) Additional Instructions: Take your medications as prescribed. If you were prescribed antibiotics today, it is important that you take your medication to their entirety, do not skip any doses, do not finish them early. Follow-up with your primary care provider this week. Return to the emergency department with new or worsening symptoms. Such as fevers, chills, chest pain, shortness of breath, nausea, vomiting, dizziness, headache, vision changes, lethargy In case of emergency call 911 Please follow-up with vascular Dr. Prado to rule out Temoral Arteritis as we discussed Toradol has been sent to your pharmacy, you tolerated this well in the department. Please take this as prescribed do not take this with ibuprofen, or other NSAIDs, do not mix this with alcohol. Side effects of this medication including increased risk for bleeding and possible kidney injury. Please take Reglan Benadryl together, taking Reglan alone can lead to involuntary muscle spasms. Prescriptions: New ketorolac 10 mg tablet 10 mg PO TID PRN (Reason: pain) 5 Days Qty: 15 0RF diphenhydramine HCl [Benadryl] 25 mg capsule 25 mg PO TID PRN (Reason: allergic reaction) Qty: 20 0RF metoclopramide HCl [Reglan] 10 mg tablet 10 mg PO Q6H PRN (Reason: headache) Qty: 20 0RF acetaminophen [Tylenol] 325 mg capsule 650 mg PO Q6H PRN (Reason: pain) Qty: 30 0RF No Action benzonatate 150 mg capsule 150 mg PO TID PRN (Reason: cough) Qty: 14 0RF Paxlovid 300 mg (150 mg x 2)-100 mg tablets,dose pack See Rx Instructions .ROUTE .COMPLEX Qty: 30 0RF Rx Instructions: take TWO 150 mg tablets of nirmatrelvir with ONE 100 mg tablet of ritonavir twice daily for 5 days codeine-guaifenesin [Guaifenesin AC] 10-100 mg/5 mL liquid 5 ml PO Q6H PRN (Reason: cold symptoms) Qty: 120 0RF oseltamivir [Tamiflu] 75 mg capsule 75 mg PO BID 5 Days Qty: 10 0RF cyclobenzaprine 5 mg tablet 5 mg PO TID PRN (Reason: back pain) 7 Days Qty: 21 0RF omeprazole 20 mg capsule,delayed release(DR/EC) 20 mg PO DAILY Qty: 30 0RF prednisone 50 mg tablet 50 mg PO DAILY Qty: 5 0RF Referrals: Physician,None [Primary Care Provider] - 2 days Print Language: Colombian
[2024-05-13 15:30] VITALS: BP 118/67; PULSE 68
[2024-05-13 15:31] VITALS: BP 124/78; BP 127/71; PULSE 71; PULSE 84
[2024-05-13 15:43] LABS: MANUAL DIFF FLAG NO
[2024-05-13 15:46] LABS: Basophils Absolute Auto 0.1 X10*3/uL (0.0-0.2); Basophils Percent Auto 1.1 % (0-2); Eosinophils Absolute Auto 0.1 X10*3/uL (0.0-0.4); Hematocrit 42.1 % (37.0-47.0); Hemoglobin 14.2 g/dl (12.0-16.0); Imm Gran Abs Auto 0.02 X10*3/uL (0.00-0.03); Imm Gran Pct Auto 0.3 % (0.0-0.4); Lymphocytes Absolute Auto 2.1 X10*3/uL (1.2-4.9); Lymphocytes Percent Auto 31.3 % (20-40); Mean Corpuscular HGB Conc 33.7 g/dl (31.0-35.0); Mean Corpuscular Hemoglobin 28.7 pg (27.0-33.0); Mean Corpuscular Volume 85.1 fL (80.0-98.0); Mean Platelet Volume 10.6 fL (9.4-12.3); Monocytes Absolute Auto 0.5 X10*3/uL (0.1-1.2); Monocytes Percent Auto 7.8 % (2-11); Neutrophils Absolute Auto 3.8 x10*3/uL (2.0-8.3); Neutrophils Percent Auto 57.5 % (45-73); Platelet Count 248 X10*3/uL (160-400); Red Blood Count 4.95 X10*6/uL (4.20-5.50); White Blood Count 6.6 X10*3/uL (4.8-10.8)
[2024-05-13] MEDS: Metoclopramide HCl 10 MG TABLET PO (16:04)
[2024-05-13] MEDS: diphenhydrAMINE HCL 25 MG CAPSULE PO (16:04)
[2024-05-13] MEDS: Ketorolac Tromethamine 30 MG/ML VIAL IM (16:05)
[2024-05-13 16:07] LABS: Alanine Aminotransferase 37 U/L (0-31); Albumin Level 4.5 g/dL (3.5-5.0); Alkaline Phosphatase 106 U/L (39-117); Anion Gap 12 (12-20); Aspartate Amino Transferase 26 U/L (5-31); Bilirubin Total 0.5 mg/dL (0.0-1.0); Blood Urea Nitrogen 10 mg/dL (9-16); C Reactive Protein 2.25 mg/dL (< or = 0.50); Carbon Dioxide 28 mmol/L (22-29); Chloride 105 mmol/L (96-108); Creatinine Clr Calc Pharmacy 90.4; Estimated Glomerular Filt Rate > 60; Glucose Random 91 mg/dL (60-115); Potassium 3.9 mmol/L (3.3-5.1); Sodium 141 mmol/L (135-145); Total Protein 8.4 g/dL (6.5-8.0)
[2024-05-13 17:05] LABS: Erythrocyte Sedimentation Rate 13 MM/HR (0-20)
[2024-05-13] MEDS: Acetaminophen 325 MG TABLET 975 MG PO (17:34)
[2024-05-13] MEDS: predniSONE 20 MG TABLET 60 MG PO (17:34)
[2024-05-13 17:46] VITALS: BP 111/76; PULSE 71; RESP 16; TEMP 36.4; O2SAT 99
[2024-05-13 17:48] VITALS: BP 111/76; PULSE 71; RESP 16; TEMP 36.4; O2SAT 99
== END 2024-05-13 17:49 | disposition home or self-care (01) ==
PROVIDERS: Physician Assistant; Emergency Provider Emergency Medicine
DX: G43.909 Migraine, unspecified, not intractable, without status migrainosus (principal); Z11.52 Encounter for screening for COVID-19; R42 Dizziness and giddiness
CPT/HCPCS: 36415; 70450; 80053; 85025; 85652; 86140; 87635; 96372; 99284; J1885

== ENCOUNTER 2024-12-10 03:29 | Emergency (ER) | payer OTHER, SELFPAY ==
[2024-12-10 03:30] VITALS: BP 111/81; PULSE 75; RESP 18; TEMP 36.6; O2SAT 98; BMI 35.4
--- NOTE | 2024-12-10 03:35 | ED_ITS ---
HPI - Dental/Oral General Chief complaint: Dental/Oral Stated complaint: tooth pain Time Seen by Provider: 12/10/24 03:34 Source: patient Mode of arrival: ambulatory Limitations: no limitations History of Present Illness ED Provider: Dr. Radha Espinoza HPI Narrative: Patient comes to the emergency room complaining of dental pain. Patient states that she has pain in the right maxillary side. Patient states that she can not sleep because of the pain. Patient states that the next time that she has an appointment with a dentist is in about a month from today. Patient denies fever chills Related Data Previous Rx's ?Medication ?Instructions ?Recorded codeine 10 mg-guaifenesin 100 mg/5 5 ml PO Q6H PRN cold symptoms #120 01/16/22 mL oral liquid (Guaifenesin AC) mL oseltamivir 75 mg capsule (Tamiflu) 75 mg PO BID 5 days #10 caps 01/16/22 benzonatate 150 mg capsule 150 mg PO TID PRN cough #14 caps 05/06/22 nirmatrelvir 300 mg (150 mg See Rx Instructions PO .COMPLEX 08/23/22 x2)-ritonavir 100 mg tablet,dose #30 ea pack (Paxlovid) cyclobenzaprine 5 mg tablet 5 mg PO TID PRN back pain 7 days 10/21/22 #21 tabs omeprazole 20 mg capsule,delayed 20 mg PO DAILY #30 caps 04/09/23 release prednisone 50 mg tablet 50 mg PO DAILY #5 tabs 03/01/24 acetaminophen 325 mg capsule 650 mg (2 x 325 mg) PO Q6H PRN 05/13/24 (Tylenol) pain #30 caps diphenhydramine HCl 25 mg capsule 25 mg PO TID PRN allergic reaction 05/13/24 (Benadryl) #20 caps ketorolac 10 mg tablet 10 mg PO TID PRN pain 5 days #15 05/13/24 tabs metoclopramide HCl 10 mg tablet 10 mg PO Q6H PRN headache #20 tabs 05/13/24 (Reglan) amoxicillin 500 mg tablet 500 mg PO TID 10 days #30 tabs 12/10/24 ketorolac 10 mg tablet 10 mg PO Q8H #12 tabs 12/10/24 Allergies Allergy/AdvReac Type Severity Reaction Status Date / Time No Known Allergies [NKA] Allergy Verified 12/10/24 03:33 Review of Systems Review of Systems: Constitutional : No Weight loss, No Fever, No Chills, No Night Sweats, No Fat igue, No Malaise ENT/Mouth : complaining of dental pain right maxillary side, No Hearing loss, No Ear Pain, No Nasal Congestion, No Sinus Pain, No Hoarseness, No sore throat, No Rhinorrhea, No Swallowing Difficulty Eyes: No Eye Pain, No Swelling, No Redness, No Foreign Body, No Discharge, No Vision Changes Cardiovascular : No Chest Pain, No SOB, No Dyspnea on Exertion, No Orthopnea, No Edema, No Palpitations Respiratory : No Cough, No Sputum, No Wheezing, No Smoke Exposure, No Dyspnea Gastrointestinal : No Nausea, No Vomiting, No Diarrhea, No Constipation, No abdominal Pain, No Hematochezia, No Melena Genitourinary : no irregular bleeding, No Dysuria, No Urinary Frequency, No Hematuria, No Urinary Incontinence, No Urgency, No Flank Pain, No Urinary Flow Changes, No Hesitancy Musculoskeletal : No joint pain, No Myalgias, No Joint Swelling Skin : No Skin Lesions, No rash Neuro : No Weakness, No Numbness, No Paresthesias, No Loss of Consciousness, No Dizziness, No Headache Psych : No Anxiety/Panic, No Depression, No SI/HI/AH/VH, No Social Issues, Heme/Lymph: No Bruising, No Bleeding,No Lymphadenopathy Endocrine : No Polyuria, No Polydipsia, No Temperature Intolerance PMFSH Past Medical History Medical History Hypothyroid Migraine Social History Social History Alcohol intake: never Patient Tobacco Use Status: Never used Tobacco Advance Directives: No Advance Directives Information Provided: Yes Do you have a plan to hurt others: No Plan Physical Exam Vital Signs: Vital Signs: Last Vital Signs Temp 97.8 F 12/10/24 03:30 Pulse 75 12/10/24 03:30 Resp 18 12/10/24 03:30 BP 111/81 12/10/24 03:30 Pulse Ox 98 12/10/24 03:30 O2 Del Method Room Air 12/10/24 03:30 BMI result Body Mass Index 35.4 Const: Other: Appearance: Alert. Oriented X3. No acute distress. Eyes: Pupils equal, round and reactive to light. ENT: Pharynx normal. patient has poor dentition on both maxillary sides, patient has teeth/molars missing on the right maxillary side as well. Patient has gingivitis Neck: Normal inspection. Neck supple. No lymph nodes noted. No crepitus CVS: Normal heart rate and rhythm. Pulses normal. Normal S1 and S2 Respiratory: No respiratory distress. Breath sounds normal. No Wheezing. No rales Abdomen: Soft and nontender. No rigidity. No distention. Skin: Skin warm and dry. Normal skin color. Normal skin turgor. Extremities: No lower extremity edema. No Lacerations. No Rash Neuro: Oriented X 3. No motor deficit. No sensory deficit. Moving all extremities. No slurred speech. CN 2 through 12 grossly intact Psych: calm, cooperative, normal affect Medical Decision Making Medical Decision Making MDM Narrative: patient has an appointment pending. Patient was given the 1st dose of amoxicillin and IM ketorolac in the emergency room. At this time, there is no visible abscess I could Be drained. Discharge Plan Discharge Clinical Impression: Toothache Patient Disposition: Home, Self-Care Instructions: Toothache (ED) Additional Instructions: Please follow-up with your primary care physician tomorrow. If you have any worsening or new symptoms, please return to the emergency room or call 911 Prescriptions: New amoxicillin 500 mg tablet 500 mg PO TID 10 Days Qty: 30 0RF ketorolac 10 mg tablet 10 mg PO Q8H Qty: 12 0RF Rx Instructions: do not use with other NSAIDs, only Tylenol if needed No Action benzonatate 150 mg capsule 150 mg PO TID PRN (Reason: cough) Qty: 14 0RF Paxlovid 300 mg (150 mg x 2)-100 mg tablets,dose pack See Rx Instructions .ROUTE .COMPLEX Qty: 30 0RF Rx Instructions: take TWO 150 mg tablets of nirmatrelvir with ONE 100 mg tablet of ritonavir twice daily for 5 days codeine-guaifenesin [Guaifenesin AC] 10-100 mg/5 mL liquid 5 ml PO Q6H PRN (Reason: cold symptoms) Qty: 120 0RF oseltamivir [Tamiflu] 75 mg capsule 75 mg PO BID 5 Days Qty: 10 0RF cyclobenzaprine 5 mg tablet 5 mg PO TID PRN (Reason: back pain) 7 Days Qty: 21 0RF omeprazole 20 mg capsule,delayed release(DR/EC) 20 mg PO DAILY Qty: 30 0RF prednisone 50 mg tablet 50 mg PO DAILY Qty: 5 0RF ketorolac 10 mg tablet 10 mg PO TID PRN (Reason: pain) 5 Days Qty: 15 0RF diphenhydramine HCl [Benadryl] 25 mg capsule 25 mg PO TID PRN (Reason: allergic reaction) Qty: 20 0RF metoclopramide HCl [Reglan] 10 mg tablet 10 mg PO Q6H PRN (Reason: headache) Qty: 20 0RF acetaminophen [Tylenol] 325 mg capsule 650 mg PO Q6H PRN (Reason: pain) Qty: 30 0RF Stand Alone Forms: Work/School Release Print Language: Latvian
[2024-12-10] MEDS: Ketorolac Tromethamine 60 MG/2 ML VIAL IM (03:39)
[2024-12-10] MEDS: Amoxicillin 500 MG CAPSULE PO (03:39)
--- OUTSIDE RECORDS SUMMARY | 2024-12-10 03:42 | XMS_ITS | Clinical Summary ---
Author Organization [facility] [address] [facility] Address [address] [place] [phone] Phone Care Team Providers Care Registration Officer Name Role Phone Dorina Barnes MD Primary Care Prov ider Allergies No known active allergies Medications fluconazole (Diflucan) 150 mg tablet If no improvement , then repeat dose in 3 days 2 each 4 Active levothyroxine (SYNTHROID, LEVOTHROID) 88 mcg tablet TAKE 1 TABLET BY MOUTH EVERY DAY 90 tablet 1 4 Active levothyroxine (SYNTHROID, LEVOTHROID) 88 mcg tablet Take 1 tablet (88 mcg total) by mouth 1 (one) time each day. 4 Active estradioL (ESTRACE) 0.01 % (0.1 mg/gram) vaginal cream Apply 0.5g nightly intravaginaly for 2 weeks and then Friday, Friday and Fridays 4 Active nystatin-triam cinolone (MYCOLOG II) ointment Apply a small pea sized amount in thin layer to affected area nightly 4 Active escitalopram (LEXAPRO) 5 mg tablet Take 1 tablet (5 mg total) by mouth 1 (one) time each day. 3 Active naproxen (NAPROSYN) 500 mg tablet Take 1 Tablet by mouth 2 times daily (with meals). 3 Active aspirin 81 mg EC tablet TAKE 1 TABLET BY MOUTH EVERY DAY 90 tablet 1 5 Active Active Problems Problem Noted Date Diagnosed Date Insomnia 05/09/2022 Asymptomatic premature menopause 02/07/2022 Overview (08/26/2024): Last Assessment & Plan: Will discuss other options at next visit. Lichen sclerosus 02/07/2022 Overview (08/26/2024): Last Assessment & Plan: Reviewed findings with patient.Well controlled. I reviewed the importance of regular maintenance topical steroid use to prevent symptoms, further scarring, and squamous cell cancer of the vulva. I also explained the importance of regular follow up to ensure she has no evidence of precancerous or cancerous changes and that she is not having side effects from her medication. I reviewed areas of application and amount of medication to use. She will continue Mycolog nightly. Vulvar atrophy 02/07/2022 Overview (08/26/2024): Last Assessment & Plan: I recommended pt treat with Estrace cream which should be applied with her finger at the introitus nightly x 2 weeks, then MWF for maintenance. I reviewed amount and area of application and need for ongoing use for effect. I reviewed relative safety of topical localized estradiol therapy. History of COVID-19 09/04/2021 Overview (08/26/2024): DX: [facility] 09/03/21 Hypothyroidism 08/28/2021 Mixed hyperlipidemia 08/28/2021 Anemia 10/05/2014 Migraine headache 08/17/2014 Encounters Date Type Department Care Team Description 10/12/2024 9:30 AM EST Ancillary Procedure [facility] Card[facility] [address] [place] [phone] Chronic congestive heart failure, unspecified heart failure type (CMS/HCC); Chest pain, unspecified type 09/14/2024 Telephone [facility] Cardiology [facility] [address] [place] [phone] Denice Leyva NP from Last 3 Months Immunizations Name Administration Dates Next Due HPV 9-valent (Gardisil) 9yo to less than 46yo 01/13/2023,11/12/2022 Moderna SARS-CoV-2 COVID-19, mRNA, LNP-S, preservative free 01/23/2021,12/26/2020 PPD Test 10/09/2016,10/11/2015,10/19/2014 Td Tetanus diptheria (Tdvax) 7yo and older 01/26 Tdap Tetanus diptheria acell ular pertussis (Boostrix; Adacel) 7yo and older 01/15/2016 Surgical History Surgery Date Site/Laterality Comments TUBAL LIGATION PROCEDURE: HISTORICAL TUBAL LIGATION Medical History Medical History Date Comments Migraine DX:Migraine; COM MENT: without aura Family History Medical History Relation Name Comments No Known Problems Brother Migraines Daughter 1 Asthma Daughter 2 Liver disease Father HTN No Known Problems Maternal Grandfather No Known Problems Maternal Grandmother Diabetes Mother HTN, thyroid Hypertension Mother No Known Problems Paternal Grandfather No Known Problems Paternal Grandmother No Known Problems Sister No Known Problems Son 1 No Known Problems Son 2 Breast cancer Neg Hx Cervical cancer Neg Hx Uterine cancer Neg Hx Relation Name Status Comments Brother Alive Daughter 1 Alive Daughter 2 Alive Father Maternal Grandfather Maternal Grandmother Mother Alive Paternal Grandfather Paternal Grandmother Sister Alive Son 1 Alive Son 2 Alive Social History Tobacco Use Types Packs/Day Years Used Date Smoking Tobacco: Never Smokeless Tobacco: Never Alcohol Use Standard Drinks/Week Comments No 0 (1 standard drink = 0.6 oz pur e alcohol) Comments Unknown Sex and Gender Information Value Date Recorded Sex Assigned at Not on file Legal Sex Female 2:33 PM EST Gender Identity Not on file Sexual Orientation Not on file Obstetrics History Last Filed Vital Signs Vital Sign Reading Time Taken Comments Blood Pressure 98/70 06/22/2024 1:45 PM EDT Pulse 86 06/22/2024 1:45 PM EDT Temperature - - Respiratory Rate - - Oxygen Saturation - - Inhaled Oxygen Concentration - - Weight 90.3 kg (199 lb) 10/12/2024 9:39 AM EST Height 157.5 cm (5' 2 ) 10/12/2024 9:39 AM EST Body Mass Index 36.4 10/12/2024 9:39 AM EST Plan of Treatment Upcoming Encounters Date Type Department Care Team (Late Contact Info) Description 12/29/2024 1:15 PM EDT Office Visit [facility] [place] [address] [place] [phone] Digna Jeffery PA [address] [place], [place] 03/23/2025 3:30 PM EDT Office Visit Obstetrics and Gynecology - [place] [address] [place], [place] [phone] Chasity Howell CNM [address] [place], [place] Health Maintenance Due Date Last Done Comments Hepatitis B Vaccines (1 of 3 - 19+ 3-dose series) 01/06/2000 Pneumococcal Vaccine: Pediatrics (0 to 5 Years) and At-Risk Patients (6 to 64 Years) (1 of 2 - PCV) 01/06/2000 Social Influencers of Health Screening 08/17/2022 HPV Vaccines (3 - 3-dose SCD M series) 05/15/2023 01/13/2023, 11/12/2022 COVID-19 Vaccine (2023-2 5 season) 2024 10/20/2021, 01/23/2021, 12/26/2020 Influenza Vaccine (#1) 2024 Hypertension/CHF/CAD Annual BMP Blood Test 09/14/2024 09/26/2022 Breast Cancer Screening 09/28/2024 09/28/19, 09/22/2021 Depression Screening 05/18/2025 05/18/2024 Cervical Cancer Screening: HPV 09/21/2026 09/21/2021 Cholesterol Screening (Lipid Panel) 09/26/2027 09/26/2022 DTaP,Tdap,and Td Vaccines (3 - Td or Tdap) 01/27/2028 01/26/2018, 01/15/2016 HIV Screening Completed 09/21/2021 Hepatitis C Screening Completed 09/21/2021 HIB Vaccines Aged Out No longer eligi ble based on patient's age to complete this topic Hepatitis A Vaccines Aged Out No long er eligible based on patient's age to complete this topic IPV Vaccines Aged Out No longer eligi ble based on patient's age to complete this topic MMR Vaccines Aged Out No longer eligi ble based on patient's age to complete this topic Meningococcal ACWY Vaccine Aged Out N o longer eligible based on patient's age to complete this topic Meningococcal B Vacine Aged Out No lo nger eligible based on patient's age to complete this topic RSV Immunization Patients Under 20 months Aged Out No longer eligible b ased on patient's age to complete this topic Varicella Vaccines Aged Out No longer eligible based on patient's age to complete this topic Procedures Procedure Name Priority Date/Time Associated Diagnosis Comments STRESS ECHOCARDIOGRAM EXERCISE Routine 10/12/2024 10:33 AM EST Chronic congestive heart failure, unspecified heart failure type (CMS/HCC) Chest pain, unspecified type DEPRESSION SCREENING Routine 05/18/2024 SCREENING MAMMOGRAPHY BI 2-VIEW BREAST INC CAD Routine 09/28/2022 9:57 AM EST Encounter for screening mammogram for malignant neoplasm of breast ANNUAL BMP BLOOD TEST Routine 09/26/2022 LIPID PANEL Routine 09/26/2022 HPV Routine 09/21/2021 HEPATITIS C SCREENING Routine 09/21/2021 HIV SCREENING Routine 09/21/2021 from Last 3 Months or Most Recently Relevant to Health Maintenance Results * STRESS ECHOCARDIOGRAM EXERCISE (10/12/2024 10:33 AM EST) BSA 1.99 m2 CV PACS STRESS Target HR 150 bpm CV PACS STRESS Baseline HR 71 bpm CV PACS STRESS Baseline SBP 112 mmHg CV PACS STRESS Baseline DBP 71 mmHg CV PACS STRESS Peak HR 146 bpm CV PACS STRESS Peak SBP 140 mmHg CV PACS STRESS Peak DBP 80 mmHg CV PACS STRESS Estimated workload 10.3 METS CV PACS STRESS Rate Pressure Product 20,440.0 mmHg*bpm CV PACS STRESS Percent HR 82 % CV PACS STRESS Exercise/inject ion duration (min) 9 min CV PACS STRESS Exercise/inject ion duration (sec) 1 sec CV PACS STRESS Angina Index 0 CV PACS STRESS Fields Treadmill Score [address] Depression (mm) 0 mm CV PACS STRESS Anatomical Region Laterality Modality Ultrasound Narrative 10/15/2024 1:16 PM EST ?The study is negative and shows no echocardiographic evidence of ischemia at this borderline adequate level of stress. ?Stress ECG was normal. ?Exercise stress test was performed. Patient reported no symptoms during the stress test. Exercise capacity was average. Normal blood pressure response. Left Ventricle Left ventricle cavity size is normal. Systolic function is normal with an ejection fraction of 60-65%. There are no regional LV wall motion abnormalities. Right Ventricle Systolic function is normal. Study Details Overall the study quality was adequate. Stress Findings A Maximilian protocol stress test was performed. Overall, the patient's exercise capacity was average. Total stress time was 9 min and 1 sec. The patient experienced no angina during the test. The test was stopped because the patient experienced leg fatigue. The Fields Treadmill Score is 9. The patient's hemodynamic response was adequate for diagnosis. Blood pressure demonstrated a normal response. Heart rate demonstrated a normal response. The patient reported no symptoms during the stress test. ECG 44 yo female with atypical chest pain. Ordered for a dobutamine STEC but stated she could walk on the treadmill so a Maximilian protocol was performed. Risks and benefits of treadmill protocol was discussed with patient and she verbally consented to the test. A boarding machine operator was used during the test. The ECG shows normal sinus rhythm. Low QRS voltage across precordial leads with abnormal R wave progression and mild nonspeccifi STT abnormality across precordial leads. There were no arrhythmias during stress. There is no ST segment changes during stress. There were no arrhythmias during recovery. The result of the stress ECG was negative for ischemia. Echo Post Stress Left ventricular cavity size decreased from baseline. Left ventricular systolic function improved from baseline. Systolic function is hyperdynamic with an ejection fraction over 70%. Nuclear Measurements The study is negative and shows no echocardiographic evidence of ischemia. Procedure Note Vivien Madsen PA / Pantera Wood MD - 10/15/2024 ? ? The study is negative and shows no echocardiographic evidence ofischemia at this borderline adequate level of stress. ? ? Stress ECG was normal. ? ? Exercise stress test was performed. Patient reported no symptoms duringthe stress test. Exercise capacity was average. Normal blood pressureresponse. Dorina Barnes MD CV ECHO PROCEDURES Final Result * Depression Screening (05/18/2024) Depression Screening abstracted us Historical Provider HEALTH MAINTENANCE Final Result * SCREENING MAMMOGRAPHY BI 2-VIEW BREAST INC CAD (09/28/2022 9:57 AM EST) Anatomical Region Laterality Modality Radiographic Prachi ging 09/22/2021 9:55 AM EST Narrative 09/30/2022 2:35 PM EST This is a summary report. The complete report is available in the patient's medical record. If you cannot access the medical record, please contact the sending organization for a detailed fax or copy. Exam: Screening mammogram Findings: Digital bilateral full-field screening mammography is performed with tomosynthesis and interpreted with the aid of computer-aided detection. ??Comparison is made with 09/22/2021. ?? Breast parenchyma is composed of scattered fibroglandular densities. ??No new suspicious mass, architectural distortion, or suspicious calcifications. Impression: No mammographic evidence of malignancy. BI-RADS 1 - negative Procedure Note Judith Dozier MD - 10/13/2023 This is a summary report. The complete report is available in thepatient's medical record. If you cannot access the medical record, pleasecontact the sending organization for a detailed fax or copy. Exam: Screening mammogram Findings: Digital bilateral full-field screening mammography is performedwith tomosynthesis and interpreted with the aid of computer-aideddetection. Comparison is made with 09/22/2021. Breast parenchyma is composed of scattered fibroglandular densities. Nonew suspicious mass, architectural distortion, or suspiciouscalcifications. Impression: No mammographic evidence of malignancy. BI-RADS 1 - negative Chasity Howell CNM IMG XR PROCEDURES Final Result * Annual BMP Blood Test (09/26/2022) Pathologist [facility] Annual BMP Blood Test abstracted Result [facility] Historical Provider HEALTH MAINTENANCE Final Result * (ABNORMAL) Lipid panel (09/26/2022) [facility] LDL/HDL Ratio 5(A) 0 - 4 Triglycerides 307(A) 0 - 150 mg/dL Cholesterol 205(A) 0 - 200 mg/dL HDL 43 >=40 mg/dL LDL Cholesterol 101(A) 0 - 100 mg/dL Blood Venous blood specimen / Unknown Result [facility] Historical Provider LAB BLOOD ORDERABLES Tiff l Result * Cervical Cancer Screening: HPV (09/21/2021) [facility] Cervical Cancer Screening: HPV negative, abstracted Result [facility] Provider HEALTH MAINTENANCE Final Result * HIV Screening (09/21/2021) [facility] HIV Screening abstracted Result [facility] Provider HEALTH MAINTENANCE Final Result * Hepatitis C Screening (09/21/2021) [facility] Hepatitis C Screening abstracted Result [facility] Provider HEALTH MAINTENANCE Final Result from Last 3 Months or Most Recently Relevant to Health Maintenance Insurance [employer] Care Teams Registration Officer Relationship Specialty Start Date End Date Dorina Barnes MD [address] [place] [phone] PCP - General Internal Medicine 09/14/24
[2024-12-10 03:44] VITALS: BP 111/81; PULSE 75; RESP 18; TEMP 36.6; O2SAT 98
== END 2024-12-10 03:44 | disposition home or self-care (01) ==
PROVIDERS: Emergency Provider Emergency Medicine
DX: K08.89 Other specified disorders of teeth and supporting structures (principal); Z79.899 Other long term (current) drug therapy
CPT/HCPCS: 96372; 99283; 99284; J1885

== ENCOUNTER 2025-04-01 10:23 | Emergency (ER) | payer OTHER, SELFPAY ==
[2025-04-01 10:25] VITALS: BP 94/70; PULSE 71; RESP 18; TEMP 36.8; O2SAT 97; BMI 32.3
--- OUTSIDE RECORDS SUMMARY | 2025-04-01 10:46 | XMS_ITS | Clinical Summary ---
Author Organization [facility] Address [address] [place] [address] Care Team Providers Care College Hire Name Role Phone Unavailable Primary Care Provider Unavailabl e Source Comments PLEASE NOTE, if this patient is a minor, it may be UNLAWFUL to discuss sensitive information that is contained in these records (such as FAMILY PLANNING, MENTAL HEALTH or SUBSTANCE ABUSE) with the minor patient's parent or other person without the patient's specific authorization.[facility] Immunizations Immunization Administration Dates Next Due Moderna COVID-19 Vaccine, re d cap blue label, 12+ Primary Series 01/23/2021,12/26/2020 Social History Tobacco Use Types Packs/Day Years Used Date Smoking Tobacco: Never Assessed Social Connections Answer Date Recorded Social Connections and Isolation 0 02/06/2024 Financial Resource Strain Answer Date R ecorded Financial Resource Strain 0 2023 Stress Answer Date Recorded Stress 0 02/06/2024 Physical Activity Answer Date Recorded Physical Activity 0 02/06/2024 Food Insecurity Answer Date Recorded Food 0 02/06/2024 Transportation Needs Answer Date Record ed Transportation 0 02/06/2024 Housing Stability Answer Date Recorded Housing 0 02/06/2024 Safety and Environment Answer Date Cornelio rded Safety 0 02/06/2024 Utilities Answer Date Recorded Utilities 0 02/06/2024 Employment Answer Date Recorded Employment 0 02/06/2024 Comments Unknown Sex and Gender Information Value Date Recorded Sex Assigned at Not on file Legal Sex Female 11:15 AM PDT Gender Identity Not on file Sexual Orientation Not on file Plan of Treatment Health Maintenance Due Date Last Done Comments Anxiety Screening 1981 Diabetes Screening 1981 HPV Screening 1981 Hepatitis C Screening 1981 Lipid Screening 1981 Pap + HPV 1981 Tobacco Screening 1981 HIV Screening 01/06/1996 Relationship Safety Screening/Counseling 01/06/1996 Hypertension Screening (#1) 1999 Imm-Hepatitis B (1 of 3 - 19 + 3-dose series) 01/06/2000 Cervical Cancer Screening 2002 Pap Smear 2002 Breast Cancer Screening (Mammogram) 2021 [id number] (3 - 2023- season) 2024 021, 12/26/2020 Imm-Influenza (#1) 2024 Alcohol and Drug Screen 09/08/2024 Depression Annual Screen 09/08/2024 Imm-DTaP/Tdap/Td (3 - Td or Tdap) 01/27/2028 018, 01/15/2016 Cervical Ablation/Cold-Knife Conization Discontinued Cervical Cryotherapy Discontinued Colposcopy Discontinued Endometrial Biopsy Discontinued Excision/Leep Discontinued HPV Genotyping Discontinued Vaginal Pap Discontinued Vulvoscopy Discontinued Insurance [employer]
--- OUTSIDE RECORDS SUMMARY | 2025-04-01 10:46 | XMS_ITS ---
Author Name [facility] Organization Unknown Care Team Organization Name Specialty Phone Email Start Date End Da te [facility] Dorina Khoury Primary Care 11/13/2022 04/26/2024 [facility] Pura Yeager Primary Care 07/16/20222023
--- OUTSIDE RECORDS SUMMARY | 2025-04-01 10:46 | XMS_ITS | Clinical Summary ---
Author Organization [facility] [address] [facility] Address [address] [place] [phone] Phone Care Team Providers Care Tool And Die Maker/Designer Name Role Phone Dorina Barnes MD Primary Care Prov ider Allergies No known active allergies Medications fluconazole (Diflucan) 150 mg tablet If no improvement , then repeat dose in 3 days 2 each 4 Active levothyroxine (SYNTHROID, LEVOTHROID) 88 mcg tablet TAKE 1 TABLET BY MOUTH EVERY DAY 90 tablet 1 4 Active estradioL (ESTRACE) 0.01 % (0.1 mg/gram) vaginal cream Apply 0.5g nightly intravaginaly for 2 weeks and then Friday, Friday and Fridays 4 Active nystatin-triam cinolone (MYCOLOG II) ointment Apply a small pea sized amount in thin layer to affected area nightly 4 Active naproxen (NAPROSYN) 500 mg tablet Take [...] Encounters Date Type Department Care Team Description 01/18/2025 2:00 PM EDT Office Visit Adult Medicine [address] [phone] Michael Ames NP Sensation of lump in throat (Primary Dx); Gastroesophageal reflux disease without esophagitis 01/17/2025 Telephone Adult Medicine [address] [phone] Dorina Barnes MD sensation of something stuck in throat from Last 3 Months Immunizations Name Administration [...] Sign Reading Time Taken Comments Blood Pressure 104/66 01/18/2025 2:06 PM EDT Pulse 86 01/18/2025 2:06 PM EDT Temperature 35.9 C (96.6 F) 01/18/2025 2:06 PM EDT Respiratory Rate 18 01/18/2025 2:06 PM EDT Oxygen Saturation 97% 01/18/2025 2:06 PM EDT Inhaled Oxygen Concentration - - Weight 91.2 kg (201 lb) 01/18/2025 2:06 PM EDT Height 160 cm (5' 3 ) 01/18/2025 2:06 PM EDT Body Mass Index 35.61 01/18/2025 2:06 PM EDT Plan of Treatment Upcoming Encounters Date Type Department Care Team (Late st Contact Info) Description 04/28/2025 1:15 PM EDT Office Visit Adult Medicine [address] [phone] Dorina Barnes MD [address] [place] [phone] Health Maintenance Due Date Last Done Comments Hepatitis B Vaccines (1 of 3 - 19+ 3-dose series) 01/06/2000 Pneumococcal Vaccine: Pediatrics (0 to 5 Years) and At-Risk Patients (6 to 49 Years) (1 of 2 - PCV) 01/06/2000 Social Influencers of Health Screening 08/17/2022 HPV Vaccines (3 - 3-dose SCD M series) 05/15/2023 01/13/2023, 11/12/2022 COVID-19 Vaccine (2023-2 5 season) 2024 10/20/2021, 01/23/2021, 12/26/2020 Hypertension/CHF/CAD Annual BMP Blood Test 09/14/2024 09/26/2022 Breast Cancer Screening 09/28/2024 09/28/19 23, 09/22/2021 Influenza Vaccine (#1) 2025 Cervical Cancer Screening: HPV 09/21/2026 09/21/2021 Cholesterol Screening (Lipid Panel) 09/26/2027 09/26/2022 DTaP,Tdap,and Td Vaccines (3 - Td or Tdap) 01/27/2028 01/26/2018, 01/15/2016 HIV Screening Completed 09/21/2021 Hepatitis C Screening Completed 09/21/2021 Depression Screening Completed 12/22/2024, 05/18/2024 HIB Vaccines Aged Out No longer eligi [...] age to complete this topic Meningococcal B Vaccine Aged Out No l onger eligible based on patient's age to complete this topic RSV Immunization Patients Under 20 months Aged Out No longer eligible b ased on patient's age to complete this topic Varicella Vaccines Aged Out No longer eligible based on patient's age to complete this topic Procedures Procedure Name Priority Date/Time Associated Diagnosis Comments DEPRESSION SCREENING Routine 05/18/2024 SCREENING MAMMOGRAPHY BI 2-VIEW BREAST INC CAD Routine 09/28/2022 9:57 AM EST Encounter for screening mammogram for malignant neoplasm of breast ANNUAL BMP BLOOD TEST Routine 09/26/2022 LIPID PANEL Routine 09/26/2022 HPV Routine 09/21/2021 HEPATITIS C SCREENING Routine 09/21/2021 HIV SCREENING Routine 09/21/2021 from Last 3 Months or Most Recently Relevant to Health Maintenance Results * Depression Screening (05/18/2024) Depression Screening abstracted [...] interpreted with the aid of computer-aided detection. Comparison is made with 09/22/2021. Breast parenchyma is composed of scattered fibroglandular densities. No new suspicious mass, architectural distortion, or suspicious [...] Result * Annual BMP Blood Test (09/26/2022) [facility] Annual BMP Blood Test abstracted Result [facility] Provider HEALTH MAINTENANCE Final Result * (ABNORMAL) Lipid panel (09/26/2022) [facility] LDL/HDL Ratio 5(A) 0 - 4 Triglycerides 307(A) 0 - 150 mg/dL Cholesterol 205(A) 0 - 200 mg/dL HDL 43 >=40 mg/dL LDL Cholesterol 101(A) 0 - 100 mg/dL Blood Venous blood specimen / Unknown Result [facility] Provider LAB BLOOD ORDERABLES Tiff l Result * Cervical Cancer Screening: HPV (09/21/2021) [facility] Cervical Cancer Screening: HPV negative, abstracted Result [facility] Provider HEALTH MAINTENANCE Final Result * HIV Screening (09/21/2021) [facility] HIV Screening abstracted Result [facility] Provider HEALTH MAINTENANCE Final Result * Hepatitis C Screening (09/21/2021) [facility] Hepatitis C Screening abstracted Result [facility] Provider HEALTH MAINTENANCE Final Result from Last 3 Months or Most Recently Relevant to Health Maintenance Insurance [employer] Care Teams Tool And Die Maker/Designer Relationship Specialty Start Date End Date Dorina Barnes MD [address] [place] [address] [phone] PCP - General Internal Medicine 09/14/24
[2025-04-01 11:16] LABS: Resp Syncy Virus RNA Qual PCR NEGATIVE (Negative); SARS COV2 PCR INHOUSE NEGATIVE (Negative)
--- NOTE | 2025-04-01 12:22 | ED_ITS ---
HPI - Headache General Chief Complaint: Headache Stated Complaint: Body Aches & Headache Time Seen by Provider: 04/01/25 12:08 Source: patient Mode of arrival: ambulatory Limitations: no limitations History of Present Illness ED Provider: HPI Narrative: 45-year-old woman with well documented history of migraines, reports ongoing migraine for the past 3 days, she states he has been taking a regular medications without relief, there is no atypical features to this, no fevers or chills, she does have photophobia that is typical and sometimes tingling in her arms which is typical for her as well. No trauma. She states she called out of work and she would require work note as well. Related Data Previous Rx's ?Medication ?Instructions ?Recorded codeine 10 mg-guaifenesin 100 mg/5 5 ml PO Q6H PRN col d symptoms #120 01/16/22 mL oral liquid (Guaifenesin AC) mL oseltamivir 75 mg capsule (Tamiflu) 75 mg PO BID 5 day s #10 caps 01/16/22 benzonatate 150 mg capsule 150 mg PO TID PRN cough #14 caps 05/06/22 nirmatrelvir 300 mg (150 mg See Rx Instructions PO .CO MPLEX 08/23/22 x2)-ritonavir 100 mg tablet,dose #30 ea pack (Paxlovid) cyclobenzaprine 5 mg tablet 5 mg PO TID PRN back pain 7 days 10/21/22 #21 tabs omeprazole 20 mg capsule,delayed 20 mg PO DAILY #30 ca ps 04/09/23 release prednisone 50 mg tablet 50 mg PO DAILY #5 tabs 03/01 acetaminophen 325 mg capsule 650 mg (2 x 325 mg) PO Q6 H PRN 05/13/24 (Tylenol) pain #30 caps diphenhydramine HCl 25 mg capsule 25 mg PO TID PRN all ergic reaction 05/13/24 (Benadryl) #20 caps ketorolac 10 mg tablet 10 mg PO TID PRN pain 5 days #15 05/13/24 tabs metoclopramide HCl 10 mg tablet 10 mg PO Q6H PRN heada arley #20 tabs 05/13/24 (Reglan) amoxicillin 500 mg tablet 500 mg PO TID 10 days #30 ta bs 12/10/24 ketorolac 10 mg tablet 10 mg PO Q8H #12 tabs lzxhymcffl-shuggeesvcszz-fwdtrqtw 1 cap PO Q8H PRN hea dache 3 days 04/01/25 50 mg-300 mg-40 mg capsule #10 caps (Fioricet) Allergies Allergy/AdvReac Type Severity Reaction Status Date / Time No Known Allergies (NKA) Allergy Verified 04/01/25 10:27 Review of Systems Constitutional: Constitutional: Reports as per [facility] Past Medical History Medical History Hypothyroid Migraine Social History Social History Alcohol intake: never Patient Tobacco Use Status: Never used Tobacco Advance Directives: No Advance Directives Information Provided: No Do you have a plan to hurt others: No Plan Physical Exam Vital Signs: Vital Signs: Last Vital Signs Temp 97.5 F 04/01/25 12:58 Pulse 81 04/01/25 12:58 Resp 16 04/01/25 12:58 BP 99/58 L 04/01/25 12:58 Pulse Ox 100 04/01/25 12:58 O2 Del Method Room Air 04/01/25 12:58 BMI result Body Mass Index 32.3 Const: Other: * Gen: ?Exhibiting photophobia, but otherwise looking well * HEENT: PERRLA, EOMI, MMM, no tenderness along the temporal area * Neck: Suboccipital tenderness, full range of motion of the neck * MSK: FROM, strength 5/5 all extremities * Skin: Warm, dry, intact, * Neuro: ?Alert and oriented x3, moving upper and lower extremities symmetrically, no obvious facial asymmetry noted, no sensory deficits, no dysmetria, Medications Administered Discontinued Medications Generic Name Dose Route Start Last Admin Trade Name Freq PRN Reason Stop Dose Admin Acetaminophen/Butalbital/Caffeine 1 tab 04/01/25 12:20 04/01/25 12:53 Butalb/Acetamin/Caff 50/325/40 Tablet PO 04/01/25 12:21 1 tab ONCE ONE Administration Dexamethasone 10 mg 04/01/25 12:20 04/01/25 12:52 Dexamethasone 2 Mg Tablet PO 04/01/25 12:21 10 mg ONCE ONE Administration Diazepam 2 mg 04/01/25 12:21 04/01/25 12:53 Diazepam 2 Mg Tablet PO 04/01/25 12:22 2 mg ONCE ONE Administration Ketorolac Tromethamine 15 mg 04/01/25 12:20 04/01/25 12:52 Ketorolac Tromethamine 15 Mg/Ml Vial IM 04/01/25 12:21 15 mg ONCE ONE Administration Medical Decision Making Medical Decision Making [facility] Narrative: Patient presenting with features and reports of a migraine, she has no neurologic deficits, no findings to suspect temporal arteritis, no neurologic deficits to suspect a stroke, subarachnoid hemorrhage, or cavernous venous thrombosis and I did not elicit any risk factors for that Did not feel further imaging such as CT or blood work such as ESR CRP is indicated this time, we will medicate her for pain, we will reassess, and antic ipate likely discharge, I will discharge her on some breakthrough medications and have him follow up with the PCP and encourage preventative medications 13:43 patient re-evaluated, she feels much better, feels very comfortable to be discharged home Differential Diagnosis Differential Diagnoses: The differential diagnosis associated with the presentation includes (Subarachnoid hemorrhage, cavernous venous thrombosis, acute angle closure glaucoma, temporal arteritis, meningitis, migraine headache, tension headache) Admission/Observation Consideration of admission/observation: Escalation of care including admission/observation considered Lab Data [facility] Lab Attestation statement: I reviewed the patient's lab results. Labs: Lab Results 04/01/25 Range/Units 10:30 Influenza Type A (PCR) NEGATIVE (Negative) Influenza Type B (PCR) NEGATIVE (Negative) RSV RNA Qual (PCR) NEGATIVE (Negative) SARS-CoV-2 RNA (RT-PCR) NEGATIVE (Negative) Tests considered The following testing was considered but not selected: CT brain Discharge Plan Discharge Clinical Impression: Migraine Qualifiers: Migraine type: periodic headache syndrome Intractability: not intractable Qualified Code(s): G43.C0 - Periodic headache syndromes in child or adult, not intractable Patient Disposition: Home, Self-Care Instructions: Migraine Headache (ED) Additional Instructions: Stay well hydrated, use Tylenol 975 mg every 6 hours needed for pain, or ibuprofen 400 mg every 6 hours needed for pain, more so prescribing Fioricet and you can use but if you use and Fioricet do not use Tylenol because Fioricet already has Tylenol in it Follow up with the PCP any worsening issues concerns come back to the ER Prescriptions: New oryvjytmqk-henqtvnqheifx-eqtl [Fioricet] 50-300-40 mg capsule 1 cap PO Q8H PRN (Reason: headache) 3 Days Qty: 10 0RF No Action benzonatate 150 mg capsule 150 mg PO TID PRN (Reason: cough) Qty: 14 0RF Paxlovid 300 mg (150 mg x 2)-100 mg tablets,dose pack See Rx Instructions .ROUTE .COMPLEX Qty: 30 0RF Rx Instructions: take TWO 150 mg tablets of nirmatrelvir with ONE 100 mg tablet of ritonavir twice daily for 5 days codeine-guaifenesin [Guaifenesin AC] 10-100 mg/5 mL liquid 5 ml PO Q6H PRN (Reason: cold symptoms) Qty: 120 0RF oseltamivir [Tamiflu] 75 mg capsule 75 mg PO BID 5 Days Qty: 10 0RF cyclobenzaprine 5 mg tablet 5 mg PO TID PRN (Reason: back pain) 7 Days Qty: 21 0RF omeprazole 20 mg capsule,delayed release(DR/EC) 20 mg PO DAILY Qty: 30 0RF prednisone 50 mg tablet 50 mg PO DAILY Qty: 5 0RF ketorolac 10 mg tablet 10 mg PO TID PRN (Reason: pain) 5 Days Qty: 15 0RF diphenhydramine HCl [Benadryl] 25 mg capsule 25 mg PO TID PRN (Reason: allergic reaction) Qty: 20 0RF metoclopramide HCl [Reglan] 10 mg tablet 10 mg PO Q6H PRN (Reason: headache) Qty: 20 0RF acetaminophen [Tylenol] 325 mg capsule 650 mg PO Q6H PRN (Reason: pain) Qty: 30 0RF amoxicillin 500 mg tablet 500 mg PO TID 10 Days Qty: 30 0RF ketorolac 10 mg tablet 10 mg PO Q8H Qty: 12 0RF Rx Instructions: do not use with other NSAIDs, only Tylenol if needed Stand Alone Forms: Work/School Release Print Language: Yi
[2025-04-01] MEDS: Butalb/Acetamin/Caff 50/325/40 TABLET 1 TAB PO (12:53)
[2025-04-01 12:58] VITALS: BP 99/58; PULSE 81; RESP 16; TEMP 36.4; O2SAT 100
[2025-04-01 14:01] VITALS: BP 99/58; PULSE 81; RESP 16; TEMP 36.4; O2SAT 100
== END 2025-04-01 14:02 | disposition home or self-care (01) ==
PROVIDERS: Emergency Provider Emergency Medicine
DX: G43.C0 Periodic headache syndromes in child or adult, not intractable (principal); M79.10 Myalgia, unspecified site; H53.143 Visual discomfort, bilateral; Z03.818 Encounter for observation for suspected exposure to other biological agents ruled out
CPT/HCPCS: 87637; 96372; 99284; J1885; J8540

== ENCOUNTER 2025-06-06 00:48 | Emergency (ER) | payer OTHER, SELFPAY ==
--- NOTE | ~2025-06-06 | XR_ITS ---
CLINICAL HISTORY: pain swelling s p trauma 3 view left ankle Comparison: None Findings: No acute fracture demonstrated. Normal aligment of the ankle mortise without dislocation. Tydzh-tl-lsyunxka ankle effusion. Mild periarticular soft tissue swelling. No radiopaque foreign body. IMPRESSION: 1. Periarticular soft tissue swelling and ankle effusion without acute fracture, suggesting ankle ligament sprain. This document has been electronically signed by: Billy Gibson MD on 06/06/2025 01:49:00
--- NOTE | ~2025-06-06 | XR_ITS ---
CLINICAL HISTORY: pain swelling s p trauma 3 view left foot Comparison: None provided Findings: No fractures or dislocations. No radiopaque foreign body. IMPRESSION: 1. No acute findings. This document has been electronically signed by: Billy Gibson MD on 06/06/2025 01:48:46
[2025-06-06 00:54] VITALS: BP 127/68; PULSE 86; RESP 18; TEMP 36.6; O2SAT 96; BMI 36.6
--- OUTSIDE RECORDS SUMMARY | 2025-06-06 01:08 | XMS_ITS | Clinical Summary ---
Author Organization [facility] [address] [facility] Address [address] [place] [phone] Phone Care Team Providers Care Fuel Manager Name Role Phone Dorina Barnes MD Primary [...] layer to affected area nightly 4 Active aspirin 81 mg EC tablet TAKE 1 TABLET BY MOUTH EVERY DAY 90 tablet 1 5 Active naproxen (NAPROSYN) 500 mg tablet Take 1 tablet (500 mg total) by mouth 2 (two) times a day if needed for moderate pain. 40 tablet 5 Active Active Problems Problem Noted Date [...] Overview (08/26/2024): DX: [facility] 09/03/21 Hypothyroidism 08/28/2021 Assessment & Plan (04/28/2025 1:37 PM EDT): Last TSH 1.18 today Patient currently on levothyroxine 88 mcg daily. Will continue same dose. Mixed hyperlipidemia 08/28/2021 Anemia 10/05/2014 Migraine headache 08/17/2014 Encounters Date Type Department Care Team Description 04/28/2025 1:15 PM EDT Office Visit Adult Medicine [address] [phone] Dorina Barnes MD Hypothyroidism, unspecified type (Primary Dx); Arthralgia of both hands; Encounter for screening mammogram for malignant neoplasm of breast 04/28/2025 9:14 AM EDT - 04/28/2025 11:[address] [facility] [address] [place] [address] Chest pain, atypical (Primary Dx) Discharge Disposition: Home or Self Care from Last 3 Months Immunizations Immunization Administration Dates Next Due HPV 9-valent (Gardisil) [...] Comments Migraine DX:Migraine; COM MENT: without aura Disease of thyroid gland Family History Medical History Relation Name Comments [...] Date Smoking Tobacco: Never Smokeless Tobacco: Never Tobacco Cessation:Counseling Given: Not Answered Alcohol Use Standard Drinks/Week Comments No 0 (1 standard drink = 0.6 oz pur e alcohol) Comments Unknown Sex and Gender Information Value Date Recorded Sex Assigned at Not on file Legal Sex Female 2:33 PM EST Gender Identity Not on file Sexual Orientation Not on file Obstetrics History Last Filed Vital Signs Vital Sign Reading Time Taken Comments Blood Pressure 110/69 04/28/2025 1:19 PM EDT Pulse 84 04/28/2025 1:19 PM EDT Temperature 36.6 C (97.9 F) 04/28/2025 1:19 PM EDT Respiratory Rate 16 04/28/2025 1:19 PM EDT Oxygen Saturation 98% 04/28/2025 9:02 AM EDT Inhaled Oxygen Concentration - - Weight 92.1 kg (203 lb) 04/28/2025 1:19 PM EDT Height 162.6 cm (5' 4 ) 04/28/2025 1:19 PM EDT Body Mass Index 34.84 04/28/2025 1:19 PM EDT Plan of Treatment Upcoming Encounters Date Type Department Care Team (Late st Contact Info) Description 11/02/2025 7:30 AM EST Office Visit Adult Medicine [facility] [address] [place], [place] [phone] Dorina Barnes MD [address] [place], [place] Health Maintenance Due Date Last Done Comments Social Influencers of Health Screening 08/17/2022 HPV Vaccines (3 - 3-dose SCD M series) 05/15/2023 01/13/2023, 11/12/2022 Breast Cancer Screening 09/28/2024 09/28/19 23, 09/22/2021 COVID-19 Vaccine (2024-2 6 season) 2025 10/20/2021, 01/23/2021, 12/26/2020 Influenza Vaccine (#1) 2025 Hypertension/CHF/CAD Annual BMP Blood Test 04/28/2026 04/28/2025, 09/26/2022 Cervical Cancer Screening: HPV 09/21/2026 09/21/2021 Cholesterol [...] patient's age to complete this topic Hepatitis B Vaccines Discontinued IPV Vaccines Aged Out No longer eligi [...] on patient's age to complete this topic Pneumococcal Vaccine: Pediatrics (0 to 5 Years) and At-Risk Patients (6 to 49 Years) Discontinued RSV Immunization Patients Under 20 months Aged Out No longer eligible based on patient's age to complete this topic Varicella Vaccines Aged Out No longer eligible based on patient's age to complete this topic Procedures Procedure Name Priority Date/Time Associated Diagnosis Comments ECG ANNOTATED 04/29/2025 XR CHEST 2 VIEWS STAT 04/28/2025 10:5 7 AM EDT POC , URINE DIAGNOSTIC STAT 04/28/2025 10:38 AM EDT THYROID STIMULATING HORMONE WITH REFLEX TO FREE T4 AND FREE T3 STAT 04/28/2025 9:50 AM EDT D-DIMER STAT 04/28/2025 9:50 AM EDT CBC WITH AUTO DIFFERENTIAL STAT 04/28/2025 9:50 AM EDT CBC AND DIFFERENTIAL STAT 04/28/2025 9:50 AM EDT BASIC METABOLIC PANEL STAT 04/28/2025 9:50 AM EDT B-TYPE NATRIURETIC PEPTIDE STAT 04/28/2025 9:50 AM EDT TROPONIN I HIGH SENSITIVITY STAT 04/28/2025 9:50 AM EDT ECG 12-LEAD STAT 04/28/2025 8:57 AM EDT CBC WITH AUTO DIFFERENTIAL Routine 04/27/2025 12:43 PM EDT Sensation of lump in throat THYROID STIMULATING HORMONE WITH REFLEX TO FREE T4 AND FREE T3 Routine 04/27/2025 12:43 PM EDT Sensation of lump in throat CBC AND DIFFERENTIAL Routine 04/27/2025 12:43 PM EDT Sensation of lump in throat DEPRESSION SCREENING Routine 05/18/2024 SCREENING MAMMOGRAPHY BI 2-VIEW BREAST INC CAD Routine 09/28/2022 9:57 AM EST Encounter for screening mammogram for malignant neoplasm of breast LIPID PANEL Routine 09/26/2022 HPV Routine 09/21/2021 HEPATITIS C SCREENING Routine 09/21/2021 HIV SCREENING Routine 09/21/2021 from Last 3 Months or Most Recently Relevant to Health Maintenance Results * ECG-Annotated (04/29/2025) us Provider Onbase MD ECG ORDERABLES Final Result * XR Chest 2 Views (04/28/2025 10:57 AM EDT) Anatomical Region Laterality Modality Body Radiographic Prachi ging 04/28/2025 11:0 1 AM EDT Impressions 04/28/2025 11:02 AM EDT No acute pulmonary disease. No change since 10/13/2023. Code 78404 -------- FINAL REPORT -------- Dictated By: Igor Jha Dictated Date: 04/28/2025 11:01 ET Assigned Physician: Igor Jha Reviewed and Electronically Signed By: Igor Jha Signed Date: 04/28/2025 11:02 ET Workstation ID: [id number] Transcribed By: Self Edit Transcribed Date: 04/28/2025 11:01 ET Narrative 04/28/2025 11:02 AM EDT HISTORY: The patient is a 45-year-old female with chest pain. 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 The bony structures are otherwise of normal appearance. The cardiac and mediastinal contours are within normal limits. The lungs and costophrenic angles are clear. Procedure Note Igor Jha MD - 04/28/2025 HISTORY: The patient is a 45-year-old female with chest pain. FINDINGS: PA and lateral radiographs of the chest demonstrate 11rib-bearing thoracic vertebrae, a congenital variant. The bony structuresare otherwise of normal appearance. The cardiac and mediastinal contoursare within normal limits. The lungs and costophrenic angles are clear. IMPRESSION: No acute pulmonary disease. No change since 10/13/2023. Code 11831 -------- FINAL REPORT -------- Dictated By: Igor Jha Dictated Date: 04/28/2025 11:01 ET Assigned Physician: Igor Jha Reviewed and Electronically Signed By: Igor Jha Signed Date: 04/28/2025 11:02 ET Workstation ID: [id number] Transcribed By: Self Edit Transcribed Date: 04/28/2025 11:01 ET Rik LACEY IMG XR PROCEDURES Final Res ult * POC , urine manually resulted (04/28/2025 10:38 AM EDT) [facility] HCG, Ur POC Negative Negative Urine Urine specimen obtained by clean catch procedure / Unknown 04/28/2025 10:38 AM EDT Bebe Park NP POINT OF CARE TEST ENTER/EDIT O RDERABLES Final Result * Troponin I High Sensitivity (04/28/2025 9:50 AM EDT) Pathologist [facility] High Sensitivity Troponin I 7 <=54 ng/L LAB CHEMISTRY METHOD 04/28/2025 10:37 AM EDT [facility] Blood Venous blood specimen / Unknown Venipuncture / Unknown 04/28/2025 9:50 AM EDT 04/28/2025 10:03 AM EDT Narrative [facility] - 04/28/2025 10:37 AM EDT High levels of biotin in samples may falsely decrease hsTroponin values. Use caution when interpreting hsTroponin results in patients taking biotin who exhibit renal impairment (eGFR <60) or in patients taking more than 20 mg/day of biotin. Rik LACEY LAB BLOOD ORDERABLES Final Result Performing Organization Address [facility]/ZIP Co de Phone Number [facility] [address] [place] [address], [place] [phone] * Thyroid stimulating hormone with reflex to free t4 and free t3 (TSH Reflex) (04/28/2025 9:50 AM EDT) Only the most recent of2 resultswithin the time period is included. [facility] TSH 2.70 0.40 - 4.00 mcIU/mL LAB CHEMISTRY METHOD 04/28/2025 10:42 AM EDT [facility] Blood Venous blood specimen / Unknown Venipuncture / Unknown 04/28/2025 9:50 AM EDT 04/28/2025 10:03 AM EDT Bebe Park NP LAB BLOOD ORDERABLES Final Resu lt Performing Organization Address [facility]/ZIP Co de Phone Number [facility] [address] [place] [address], [place] [phone] * (ABNORMAL) CBC auto differential (04/28/2025 9:50 AM EDT) Only the most recent of2 resultswithin the time period is included. [facility] WBC 5.0 4.8 - 10.8 K/mcL LAB HEMETOLOGY METHOD 04/28/2025 10:09 AM EDT [facility] RBC 4.90(H) 3.80 - 4.80 M/mcL LAB HEMETOLOGY METHOD 04/28/2025 10:09 AM EDT [facility] Hemoglobin 13.6 11.5 - 16.0 g/dL LAB HEMETOLOGY METHOD 04/28/2025 10:09 AM EDT [facility] Hematocrit 41.0 35.0 - 47.0 % LAB HEMETOLOGY METHOD 04/28/2025 10:09 AM [facility] MCV 84.0 79.0 - 98.0 FL LAB HEMETOLOGY METHOD 04/28/2025 10:09 AM [facility] MCH 27.9 27.0 - 32.0 pcg LAB HEMETOLOGY METHOD 04/28/2025 10:09 AM [facility] MCHC 33.2 32.0 - 37.0 g/dL LAB HEMETOLOGY METHOD 04/28/2025 10:09 AM [facility] RDW 12.0 11.0 - 15.0 % LAB HEMETOLOGY METHOD 04/28/2025 10:09 AM [facility] Platelets 263 130 - 400 K/mcL LAB HEMETOLOGY METHOD 04/28/2025 10:09 AM [facility] MPV 11.0 7.0 - 11.0 FL LAB HEMETOLOGY METHOD 04/28/2025 10:09 AM [facility] NRBC 0.0 <1.0 % LAB HEMETOLOGY METHOD 04/28/2025 10:09 AM [facility] NRBC Absolute 0.00 <0.10 K/mcL LAB HEMETOLOGY METHOD 04/28/2025 10:09 AM [facility] Neutrophils Relative 49.5 % LAB HEMETOLOGY METHOD 04/28/2025 10:09 AM [facility] Lymphocytes Relative 37.1 % LAB HEMETOLOGY METHOD 04/28/2025 10:09 AM [facility] Monocytes Relative 8.8 % LAB HEMETOLOGY METHOD 04/28/2025 10:09 AM [facility] Eosinophils Relative 2.4 % LAB HEMETOLOGY METHOD 04/28/2025 10:09 AM EDT [facility] Basophils Relative 1.4 % LAB HEMETOLOGY METHOD 04/28/2025 10:09 AM EDT [facility] Immature Granulocytes Relative 0.8 % LAB HEMETOLOGY METHOD 04/28/2025 10:09 AM EDT [facility] Neutrophils Absolute 2.48 1.50 - 7.00 K/mcL LAB HEMETOLOGY METHOD 04/28/2025 10:09 AM EDT [facility] Lymphocytes Absolute 1.86 1.00 - 5.00 K/mcL LAB HEMETOLOGY METHOD 04/28/2025 10:09 AM EDT [facility] Monocytes Absolute 0.44 0.20 - 1.00 K/mcL LAB HEMETOLOGY METHOD 04/28/2025 10:09 AM [facility] Eosinophils Absolute 0.12 0.00 - 0.50 K/mcL LAB HEMETOLOGY METHOD 04/28/2025 10:09 AM T [facility] Basophils Absolute 0.07 0.00 - 0.20 K/mcL LAB HEMETOLOGY METHOD 04/28/2025 10:09 AM [facility] Immature Granulocytes Absolute 0.04(H) 0.00 - 0.03 K/mcL LAB HEMETOLOGY METHOD 04/28/2025 10:09 AM [facility] Blood Venous blood specimen / Unknown Venipuncture / Unknown 04/28/2025 9:50 AM EDT 04/28/2025 10:03 AM EDT us Rik LACEY LAB BLOOD ORDERABLES Final Result [facility] [address] [place] [address], * D-dimer, quantitative (04/28/2025 9:50 AM EDT) D-Dimer, Quant (D-DU) <150 <=230 ng/mL DDU LAB COAGULATION METHOD 04/28/2025 10:18 AM EDT [facility] Blood Venous blood specimen / Unknown Venipuncture / Unknown 04/28/2025 9:50 AM EDT 04/28/2025 10:03 AM EDT Narrative [facility] - 04/28/2025 10:18 AM EDT D-Dimer <230 ng/mL (D-Dimer units) is the threshold for exclusion of DVT/PE. D-Dimer may be elevated in: Critically ill, severely infected, trauma patients, DIC, acute CVA, acute CT, unstable angina, AF, old age, , and smoking. D-Dimer may be decreased with: Initiation of heparin therapy and oral anticoagulants. Bebe Park NP LAB BLOOD ORDERABLES Final Resu lt Performing Organization Address City/[facility]/ZIP Co de Phone Number [facility] [address] [place] [address], [place] [phone] * B-Type Natriuretic Peptide (BNP) (04/28/2025 9:50 AM EDT) Pathologist [facility] BNP 9 <=100 pcg/mL LAB CHEMISTRY METHOD 04/28/2025 10:51 AM EDT [facility] Blood Venous blood specimen / Unknown Venipuncture / Unknown 04/28/2025 9:50 AM EDT 04/28/2025 10:04 AM EDT Rik Saldana PA LAB BLOOD ORDERABLES Final Result [facility] [address] [place] [address], [place] [phone] * (ABNORMAL) Basic Metabolic Panel (BMP) (04/28/2025 9:50 AM EDT) Sodium 139 133 - 145 mmol/L LAB CHEMISTRY METHOD 04/28/2025 10:34 AM [facility] Potassium 4.3 3.5 - 5.5 mmol/L LAB CHEMISTRY METHOD 04/28/2025 10:34 AM [facility] Chloride 111(H) 96 - 110 mmol/L LAB CHEMISTRY METHOD 04/28/2025 10:34 AM [facility] CO2 24 21 - 32 mmol/L LAB CHEMISTRY METHOD 04/28/2025 10:34 AM [facility] Anion Gap 4 3 - 11 LAB CHEMISTRY METHOD 04/28/2025 10:34 AM [facility] Glucose 98 70 - 100 mg/dL LAB CHEMISTRY METHOD 04/28/2025 10:34 AM [facility] BUN 11 5 - 25 mg/dL LAB CHEMISTRY METHOD 04/28/2025 10:34 AM [facility] Creatinine 0.73 0.50 - 1.10 mg/dL LAB CHEMISTRY METHOD 04/28/2025 10:34 AM [facility] eGFR 104 >=60 mL/min/1. 73m2 LAB CHEMISTRY METHOD 04/28/2025 10:34 AM [facility] Comment:Calculation based on the Chronic Kidney Disease Epidemiology Collaboration (CKD-EPI) equation refit without adjustment for race. BUN/Creatinine Ratio 15.1 LAB CHEMISTRY METHOD 04/28/2025 10:34 AM [facility] Calcium 9.0 8.5 - 10.5 mg/dL LAB CHEMISTRY METHOD 04/28/2025 10:34 AM [facility] Blood Venous blood specimen / Unknown Venipuncture / Unknown 04/28/2025 9:50 AM EDT 04/28/2025 10:03 AM EDT us Rik LACEY LAB BLOOD ORDERABLES Final Result [facility] [address] [place] [address], [place] [phone] * ECG 12 lead (04/28/2025 8:57 AM EDT) Ventricular Rate ECG 68 BPM GEMUSE Atrial Rate 68 BPM GEMUSE P-R Interval 170 ms GEMUSE QRS Duration 82 ms GEMUSE Q-T Interval 378 ms GEMUSE QTc 401 ms GEMUSE P Wave [place] 26 degrees GEMUSE R [place] 20 degrees GEMUSE T [place] 0 degrees GEMUSE ECG Interpretation Normal sinus rhythm Normal ECG When compared with ECG of 13-OCT-2023 12:58, No significant change was found Confirmed by WALKER CORNEJO ([id number]) on 04/28/2025 9:57:12 AM GEMUSE 04/28/2025 8:57 AM EDT 04/28/2025 9:57 AM EDT Rik LACEY ECG ORDERABLES Final Resul t GEMUSE * Depression Screening (05/18/2024) [facility] Depression Screening abstracted Historical Provider HEALTH MAINTENANCE Final Result * [...] malignancy. BI-RADS 1 - negative Chasity Howell CNWagner IMG XR PROCEDURES Final Result * (ABNORMAL) Lipid panel (09/26/2022) [facility] LDL/HDL Ratio 5(A) 0 - 4 Triglycerides 307(A) 0 - 150 mg/dL Cholesterol 205(A) 0 - 200 mg/dL HDL 43 >=40 mg/dL LDL Cholesterol 101(A) 0 - 100 mg/dL Blood Venous blood specimen / Unknown Result [facility] Provider LAB BLOOD ORDERABLES Tiff l Result * Cervical Cancer Screening: HPV (09/21/2021) [facility] Cervical Cancer Screening: HPV negative, abstracted Result [facility] Provider HEALTH MAINTENANCE Final Result * HIV Screening (09/21/2021) [facility] HIV Screening abstracted Result [facility] Provider HEALTH MAINTENANCE Final Result * Hepatitis C Screening (09/21/2021) [facility] Hepatitis C Screening abstracted [facility] Provider HEALTH MAINTENANCE Final Result from Last 3 Months or Most Recently Relevant to Health Maintenance [place] [address] [place] [id number] Care Teams Fuel Manager Relationship Specialty Start Date End Date Dorina Barnes MD [address] [place] [phone] PCP - General Internal Medicine 09/14/24
--- OUTSIDE RECORDS SUMMARY | 2025-06-06 01:08 | XMS_ITS | Clinical Summary ---
Author Organization [facility] Address [address] [place] [address] Care Team Providers Care Linotyper Name Role Phone Unavailable Primary Care Provider [...] Cervical Cancer Screening 2002 Pap Smear 2002 Imm-HPV (1 - 3-dose SCDM series) 01/06/2008 Breast Cancer Screening (Mammogram) 2021 Alcohol and Drug Screen 09/08/2024 Depression Annual Screen 09/08/2024 [id number] ( season) 2025 021, 12/26/2020 Imm-Influenza (#1) 2025 Imm-DTaP/Tdap/Td (3 - Td or Tdap) 01/27/2028 018, 01/15/2016 Cervical Ablation/Cold-Knife Conization Discontinued Cervical Cryotherapy Discontinued Colposcopy Discontinued Endometrial Biopsy Discontinued Excision/Leep Discontinued HPV Genotyping Discontinued Vaginal Pap Discontinued Vulvoscopy Discontinued Insurance [employer]
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
[2025-06-06] MEDS: Diphth,Pertus(ACell),Tet Adult 0.5 ML SYRINGE IM (03:01)
[2025-06-06 03:45] VITALS: BP 129/80; PULSE 80; RESP 16; TEMP 36.6; O2SAT 99
[2025-06-06 05:19] VITALS: BP 129/80; PULSE 80; RESP 16; TEMP 36.6; O2SAT 99
== END 2025-06-06 05:25 | disposition home or self-care (01) ==
PROVIDERS: Emergency Provider Emergency Medicine; PCP Internal Medicine
DX: S93.402A Sprain of unspecified ligament of left ankle, initial encounter (principal); S90.512A Abrasion, left ankle, initial encounter; L03.116 Cellulitis of left lower limb; X58.XXXA Exposure to other specified factors, initial encounter; Y93.89 Activity, other specified; Y92.488 Other paved roadways as the place of occurrence of the external cause; Y99.8 Other external cause status; Z23 Encounter for immunization
CPT/HCPCS: 73610; 73630; 90471; 90715; 99284

== ENCOUNTER → 2025-06-06 01:05 | Outpatient (BNV) | payer OTHER, SELFPAY | PROVIDERS: PCP Internal Medicine; Visit Provider Radiology Diagnostic Radiology | DX: M79.89 Other specified soft tissue disorders (principal); M25.472 Effusion, left ankle; M79.672 Pain in left foot; R22.42 Localized swelling, mass and lump, left lower limb | CPT/HCPCS: 73610; 73630 ==